=== PATIENT | female | born 1955 | race Caucasian/White ===

== ENCOUNTER 2018-01-08 09:33 | Observation (INO) | payer BC, SELFPAY ==
[2018-01-08] VITALS (15 sets, daily range): BP systolic 75–136; BP diastolic 53–99; PULSE 35–100; RESP 10–18; TEMP 36.4–37.7; O2SAT 95–100; BMI 28.2; BMI 29.5
--- NOTE | 2018-01-08 10:11 | CT_ITS ---
STUDY: CT BRAIN WITHOUT CONTRAST REASON FOR EXAM: Female, 62 years old. 4 day history of weakness and syncope. RADIATION DOSAGE (If Supplied By Facility): CTDIvol = ( 60.81 ) mGy, DLP = ( 2134.16 ) mGycm TECHNIQUE: Transaxial CT imaging of the brain was performed without administration of intravenous contrast material. Individualized dose optimization techniques were used for this CT. COMPARISON: None. FINDINGS: Normal soft tissue structures. There is a 6 mm exostosis along the left frontal bone. Normal size ventricles and extra-axial spaces for the patient's age. Normal white matter tracts of the cerebral hemispheres. Normal basal ganglia and thalami. Normal brainstem. Normal cerebellum. There is no intracranial hemorrhage. There are no findings of an acute ischemic infarction. Mild degree of mucosal thickening of the ethmoid sinuses bilaterally. CT/Brain/Head without Contrast IMPRESSION: Mild degree of mucosal thickening of the ethmoid sinuses. Electronically Signed: Georges Jules MD at 11:26 EST Tel [phone], Service support ,
--- NOTE | 2018-01-08 10:11 | EKG12_ITS ---
Test Reason : SYNCOPE Blood Pressure : / mmHG Vent. Rate : 064 BPM Atrial Rate : 064 BPM P-R Int : 166 ms QRS Dur : 086 ms QT Int : 428 ms P-R-T Axes : 016 002 013 degrees QTc Int : 441 ms Normal sinus rhythm Normal ECG Confirmed by ELVER LEAL, HONG ([id number]), dictionary editor SADE RIOS ([id number]) on 01/11/2018 3:35:11 PM Referred By: KANDY Confirmed By:HONG RAYA MD
--- NOTE | 2018-01-08 10:28 | ED.RN ---
PT HAD SYNCOPAL EPISODE AFTER IV. HEART RATE DOWN TO 35. PT DID STATE THAT SHE FELT LIKE SHE WAS GOING TO PASS OUT. PT UNRESPONSIVE. DR. GAITAN TO BEDSIDE. PT IN JUNCTIONAL RHYTHM. 0.5MG OF ATROPINE VERBAL ORDER FROM DR. GAITAN, GIVEN. BP 75/53, RESP 8, HR 35, 2l 02 PLACED, 100%. PT RESPONSIVE DURING ATROPINE PUSH. HEART RATE BACK UP TO 69 WITH NSR.
--- NOTE | 2018-01-08 10:44 | EKG12_ITS ---
Test Reason : FAREED Blood Pressure : / mmHG Vent. Rate : 040 BPM Atrial Rate : 040 BPM P-R Int : 192 ms QRS Dur : 084 ms QT Int : 518 ms P-R-T Axes : 026 016 044 degrees QTc Int : 422 ms Marked sinus bradycardia Abnormal ECG Confirmed by ELVER LEAL, HONG ([id number]), clinical editor SADE RIOS ([id number]) on 01/11/2018 3:35:26 PM Referred By: KANDY Confirmed By:HONG RAYA MD
[2018-01-08] MEDS: 0.9% Normal Saline 1,000 ML 1000 ML IV (10:45)
[2018-01-08 10:47] LABS: Absolute Lymphocyte Count 0.76 X10^3/ul (0.83-4.51); Absolute Neutrophil Count 2.7 X10^3/uL (2.0-7.7); Basophil# 0.03 X10^3/uL; Basophil% 0.7 % (0-1); Eosinophil# 0.03 X10^3/uL; Eosinophils% 0.7 % (0-5); Hematocrit 42.6 % (37-47); Hemoglobin 13.9 g/dl (12.0-15.0); Lymphocyte # 0.76 X10^3/ul (4.0); Mean Corp Hgb Conc 32.6 g/gl (32-36); Mean Corpuscular Hgb 26.2 pg (27.0-32.0); Mean Corpuscular Volume 80.2 fL (81-99); Mean Platelet Vol. 10.6 fl (6.2-12.0); Monocyte# 0.46 X10^3/uL; Monocyte% 11.5 % (0-10); Neutrophil # 2.73 X10^3/uL (2.7-7.7); Neutrophil % 68.1 % (47-70); Platelet Count 253 K/mm3 (150-450); RBC Distribution Width CV 13.8 % (11.6-14.6); RBC Distribution Width SD 40.1 fl (35.1-43.9); Red Blood Count 5.31 M/mm3 (4.2-5.4)
[2018-01-08 10:49] LABS: POSITIVE COUNT NO; POSITIVE DIFFERENTIAL NO; POSITIVE MORPHOLOGY NO
[2018-01-08 11:04] LABS: Phosphorus 4.2 mg/dL (2.5-4.9)
--- NOTE | 2018-01-08 11:05 | RAD_ITS ---
STUDY: X-RAY CHEST REASON FOR EXAM: Female, 62 years old. Dizziness and weakness. Syncopal episode. TECHNIQUE: AP and lateral views of the chest. COMPARISON: None. FINDINGS: EKG electrodes are seen. The lungs are clear and expanded. There is no demonstrated pleural abnormality. Normal size heart. Normal mediastinum and narinder. Normal visualized pulmonary arteries. There is atherosclerotic tortuosity of the aortic arch and descending thoracic aorta. There are degenerative changes of the visualized thoracic spine. Normal visualized ribs, clavicles, and shoulders. There is no demonstrated abnormality of the visualized soft tissue structures of the upper abdomen. RAD/Chest PA and Lateral IMPRESSION: No acute abnormality is seen. Electronically Signed: Georges Jules MD at 11:27 EST Tel [phone], Service support ,
[2018-01-08 11:08] LABS: Lactic Acid 0.9 mmol/L (0.4-2.0)
[2018-01-08 11:09] LABS: ALB/GLOB Ratio 0.9 RATIO (0.9-2.4); AST(SGOT) 25 U/L (15-37); Alanine Aminotransfer ALT/SGPT 39 U/L (13-56); Albumin, Serum 3.7 g/dL (3.2-5.0); Alkaline Phosphatase 100 U/L (45-117); Anion Gap 9 (5-15); BUN 15 mg/dL (7-18); Calcium,Total 8.1 mg/dL (8.5-10.1); Chloride 99 mmol/L (98-107); Creatinine, Serum 1.15 mg/dL (0.55-1.02); EST Glomerular Filtration Rate 51 mL/min (>60); Est Glom Filt Rate - Afr Amer 62 mL/min (>60); Estimated Creatinine Clearance 44.92 ml/min; Globulin 4.2 g/dL (2.2-4.2); Glucose 93 mg/dL (74-106); Potassium 3.1 mmol/L (3.5-5.1); Protein, Total 7.9 g/dL (6.4-8.2); Sodium Level 136 mmol/L (136-145); Thyroid Stim Hormone (TSH) 0.57 uIU/mL (0.358-3.74)
[2018-01-08 11:56] LABS: Mucous, Urine 0 SEEN /hpf (<or=2+); Red Blood Cells-Urine 0 SEEN /hpf (0-5)
[2018-01-08 11:57] LABS: Color, Urine Yellow (Yellow); Glucose, Dipstick Normal (Normal); Ketone-Dipstick Negative (Negative); Leukocyte Esterase-Dipstick 500 /ul (Negative); Nitrite-Dipstick Negative (Negative); Occult Blood-Urine 10 /ul (Negative); Protein-Dipstick 15 mg/dl (Negative); Urine Bilirubin Dipstick Negative (Negative); Urine Clarity Sl. Cloudy (Clear); Urine Urobilinogen Normal (Normal)
[2018-01-08 12:03] LABS: Bacteria 1+ /hpf (None Seen); Hyaline Cast 0-5 SEEN /lpf (0-5); Squamous Epithelial Cells - UA 5-10 SEEN /hpf (5-10); White Blood Cells 5-10 SEEN /hpf (0-5)
[2018-01-08] MEDS: Morphine 4 MG/ML Syringe IV (12:56)
[2018-01-08] MEDS: Atropine Sulfate 1 MG/10 ML Syringe 0.5 MG IV (13:00)
--- NOTE | 2018-01-08 13:45 | PCM.HP.STD ---
Problem List (1) Syncope Status: Acute History of Present Illness Date of Admission: 01/08/18 Chief Complaint: syncope The patient is a 62 year old F with a history of hypothyroidism and hypertension. She was admitted through the ED on 01/08/2018 with a complaint of syncopal episode. Patient states for the past few days she has been feeling very tired and had associated chills. The early hours of this morning, she was on her way to the bathroom when she passed out and hit the floor. She denies aware that she hit her head or not and states that just prior to passing out she had associated dizziness and lightheadedness. She passed out for ~ 1 minute. She came alone and denied any associated lethargy but states that as her partner was trying to help her get up, she passed out again. Partner states that she had associated jerking movements of her head and her arms but not her legs. Again this lasted about 1 minute and was associated with urinary incontinence but no fecal incontinence and she did not have any drowsiness or lethargy afterwards. She called her doctor's office but they advised her to come to the ED considering the seriousness of the situation. In the ED, vitals were essentially stable with heart rate of 68 and blood pressure 109 73 as well as respiratory rate of 12. However during review in the ED by the ED doctor, her pulse went down and she was noted to be bradycardic and EKG done at that time showed heart rate of 40 which resolved with administration of atropine. Labs done showed potassium of 3.1 and creatinine of 1.15 and chest x-ray showed no acute cardiopulmonary process. Brain CT was also otherwise negative. Is been admitted to be managed for syncopal episode. [] Past Medical History Allergies No Known Allergies Allergy (Verified 01/08/18 09:34) Home Medications: Ambulatory Orders Medication Instructions Recorded Calcitriol [Rocaltrol] 0.25 mg PO DAILY 01/08/18 Levothyroxine [Synthroid] 50 mcg PO DAILY 01/08/18 Lisinopril [Zestril] 5 mg PO DAILY 01/08/18 Triamterene 37.5MG/Hctz 25MG 1 cap PO DAILY 01/08/18 [Dyazide (G)] Surgical History: - - parathyroidectomy Psychiatric History: No pertinent psych hx Lives: Spouse/ Significant Other Smoking Status: Never smoker Alcohol: Occasional Drugs: None - *Family History Sibling History Items: Seizures - brother developed seizures after encephalitis Paternal History Items: Heart Disease Maternal History Items: Stroke Review of Systems Constitutional: Reports: Malaise, Weakness, Fatigue. Denies: Chills, Fever, Weight Change Eyes: Denies: Blurred vision, Double vision HEENT: Denies: Head Aches, Sinus Congestion, Sinus Drainage Cardiovascular: Denies: Chest Pain, Palpitations Respiratory: Denies: Cough, Shortness of Breath, Shortness of breath at rest, Sputum production Gastrointestinal: Denies: Abdominal Pain, Nausea, Vomiting Genitourinary: Denies: Dysuria Musculoskeletal: Denies: Joint Pain, Joint Tenderness Skin: Denies: Rash, Wounds Neurological: Denies: Slurred speech, Confusion, Focal weakness, Numbness, Tingling Psychiatric: Denies: Anxiety, Depression, Homicidal Ideations, Suicidal Ideations Hematologic/ Lymphatic: Denies: Easy Bruising, Easy Bleeding VTE Information - Inpt Only VTE Present on Admission: No VTE Pharm Prophylaxis ordered?: Yes Patient Problems: Active and Suspected Problems Syncope (Acute) - Physical Exam General: Alert, Oriented x3, Cooperative, No apparent distress HEENT: Atraumatic, PERRLA, EOMI, Normocephalic Oral: Dry Mucosa Neck: Supple, No JVD, Negative Carotid Bruits Lungs: Clear to auscultation, Normal air movement, No rhonchi, No wheeze, No rales Cardiovascular: Regular rate, Regular Rhythm, Normal S1, Normal S2, No murmurs Abdomen: Bowel Sounds Present, Soft, Non Tender, Non-Distended, No Hepato-splenomegaly Extremities: No clubbing, No cyanosis, No edema, Capillary Refill Less than 3 Seconds Skin: No rashes, No breakdown Musculoskeletal: No Tenderness to Palpation of Joints or Extremities Lymphatic: No Cervical, Supraclavicular, or Inguinal Adenopathy Neurological: Cranial nerves II-XII grossly intact, Neuro grossly intact, Motor Exam 5/5 strength throughout Psych/Mental Status: Normal Affect, Appropriate, Alert and oriented to time, place, person, mood and affect Vital Signs Temp Pulse Resp BP Pulse Ox 97.6 F L 68 17 109/77 98 01/08/18 09:35 01/08/18 13:22 01/08/18 13:22 01/08/18 13:22 01/08/18 13:22 Oxygen Flow Rate (L/min) 2 Oxygen Delivery Method Room Air Weight: 164 lb 7.437 oz Body Mass Index (BMI) 28.2 Laboratory Tests Past 24 Hrs 01/08/18 01/08/18 01/08/18 10:26 10:26 10:26 WBC 4.0 L RBC 5.31 Hgb 13.9 Hct 42.6 MCV 80.2 L MCH 26.2 L MCHC 32.6 RDW 13.8 RDW Differential 40.1 Plt Count 253 MPV 10.6 Immature Gran % (Auto) 0.000 Neut % (Auto) 68.1 Lymph % (Auto) 19.0 [place] % (Auto) 11.5 H Eos % (Auto) 0.7 Baso % (Auto) 0.7 Absolute Neuts (auto) 2.7 Absolute Lymphs (auto) 0.76 L Total Counted Not Reportable Sodium 136 Potassium 3.1 L Chloride 99 Carbon Dioxide 28.0 Anion Gap 9 BUN 15 Creatinine 1.15 H Estim Creat Clear Calc 44.92 Est GFR (MDRD) Af Amer 62 Est GFR (MDRD) Non-Af 51 L BUN/Creatinine Ratio 13.0 Glucose 93 Lactic Acid 0.9 Calcium 8.1 L Phosphorus Magnesium 2.0 Total Bilirubin 1.10 H AST 25 ALT 39 Alkaline Phosphatase 100 Troponin I < 0.015 Total Protein 7.9 Albumin 3.7 Globulin 4.2 Albumin/Globulin Ratio 0.9 TSH 0.57 Urine Color Urine Clarity Urine pH Ur Specific [place] Urine Protein Urine Glucose (UA) Urine Ketones Urine Occult Blood Urine Nitrite Urine Bilirubin Urine Urobilinogen Ur Leukocyte Esterase Urine RBC Urine WBC Ur Squamous Epith Cells Urine Bacteria Hyaline Casts Urine Mucus 01/08/18 01/08/18 10:26 11:50 WBC RBC Hgb Hct MCV MCH MCHC RDW RDW Differential Plt Count MPV Immature Gran % (Auto) Neut % (Auto) Lymph % (Auto) [place] % (Auto) Eos % (Auto) Baso % (Auto) Absolute Neuts (auto) Absolute Lymphs (auto) Total Counted Sodium Potassium Chloride Carbon Dioxide Anion Gap BUN Creatinine Estim Creat Clear Calc Est GFR (MDRD) Af Amer Est GFR (MDRD) Non-Af BUN/Creatinine Ratio Glucose Lactic Acid Calcium Phosphorus 4.2 Magnesium Total Bilirubin AST ALT Alkaline Phosphatase Troponin I Total Protein Albumin Globulin Albumin/Globulin Ratio TSH Urine Color Yellow Urine Clarity Sl. Cloudy Urine pH 6.0 Ur Specific [place] 1.020 Urine Protein 15 H Urine Glucose (UA) Normal Urine Ketones Negative Urine Occult Blood 10 H Urine Nitrite Negative Urine Bilirubin Negative Urine Urobilinogen Normal Ur Leukocyte Esterase 500 H Urine RBC 0 SEEN Urine WBC 5-10 SEEN Ur Squamous Epith Cells 5-10 SEEN Urine Bacteria 1+ Hyaline Casts 0-5 SEEN Urine Mucus 0 SEEN Assessment/Plan All Active Problems Syncope (Acute) 62-year-old female presenting with 2 episodes of syncope and possible seizure. 1. Syncope due to possible seizure and bradycardia first time having syncopal episodes, and denies any history of seizures EKG on arrival in ED showed NSR, however she suddenly became bradycardic and EKG showed heart rate in the 40s. And possible seizure with syncope as she has jerking movements of her head and her arms. admit to PCU with telemetry check orthostatics brain CT showed no acute intracranial pathology Consult neurology for possible seizure. For brain MRI and EEG Consult cardiology on account of bradycardia with heart rate going down to the 40s. hydrate With IV fluid normal saline 2. Hypokalemia: K is 3.1 It has been replaced. WIll monitor 3. Hypothyroidism: History of Sandy's thyroiditis. Also had parathyroidectomy, and had half her thyroid gland resected o/a of Sandy's thyroiditis. She is not clear about indication for parathyroidectomy. On Synthroid. Will check TSH. 4. Hypocalcemia: calcium is 8.1, corrected for albumin. has a history of parathyroidectomy, which will predispose her to hypocalcemia will replace and monitor on oral calciuim supplements 5. Hypertension: on lisinopril and triamterene. 6. Asymptomatic bacteriuria: UA showed LEs of 500, 4-10 wbc3 and 1+ bacteria. Patient is however asymptomatic. Will monitor. DVT prophylaxis: heparin Code status: full code. Patient Counseled about different types of CODE STATUS including full code, DNR CCA DNR CCA. Patient elects to be full code. Total [id number] time 16 minutes. Code Visit Inpatient E&M: 83841 Init Hosp L3 Procedures: 82367 Advncd Care Plan 30 Min
--- NOTE | 2018-01-08 13:49 | HP.PCM_ITS ---
Problem List (1) Syncope Status: Acute History of Present Illness Date of Admission: 01/08/18 Chief Complaint: syncope The patient is a 62 year old F with a history of hypothyroidism and hypertension. She was admitted through the ED on 01/08/2018 with a complaint of syncopal episode. Patient states for the past few days she has been feeling very tired and had associated chills. The early hours of this morning, she was on her way to the bathroom when she passed out and hit the floor. She denies aware that she hit her head or not and states that just prior to passing out she had associated dizziness and lightheadedness. She passed out for ~ 1 minute. She came alone and denied any associated lethargy but states that as her partner was trying to help her get up, she passed out again. Partner states that she had associated jerking movements of her head and her arms but not her legs. Again this lasted about 1 minute and was associated with urinary incontinence but no fecal incontinence and she did not have any drowsiness or lethargy afte rwards. She called her doctor's office but they advised her to come to the ED considering the seriousness of the situation. In the ED, vitals were essentially stable with heart rate of 68 and blood pressure 109 73 as well as respiratory rate of 12. However during review in the ED by the ED doctor, her pulse went down and she was noted to be bradycardic and EKG done at that time showed heart rate of 40 which resolved with administration of atropine. Labs done showed potassium of 3.1 and creatinine of 1.15 and chest x-ray showed no acute cardiopulmonary process. Brain CT was also otherwise negative. Is been admitted to be managed for syncopal episode. [] Past Medical History Allergies No Known Allergies Allergy (Verified 01/08/18 09:34) Home Medications: Ambulatory Orders Medication Instructions Recorded Calcitriol [Rocaltrol] 0.25 mg PO DAILY 01/08/18 Levothyroxine [Synthroid] 50 mcg PO DAILY 01/08/18 Lisinopril [Zestril] 5 mg PO DAILY 01/08/18 Triamterene 37.5MG/Hctz 25MG 1 cap PO DAILY 01/08/18 [Dyazide (G)] Surgical History: - - parathyroidectomy Psychiatric History: No pertinent psych hx Lives: Spouse/ Significant Other Smoking Status: Never smoker Alcohol: Occasional Drugs: None - *Family History Sibling History Items: Seizures - brother developed seizures after encephalitis Paternal History Items: Heart Disease Maternal History Items: Stroke Review of Systems Constitutional: Reports: Malaise, Weakness, Fatigue. Denies: Chills, Fever, Weight Change Eyes: Denies: Blurred vision, Double vision HEENT: Denies: Head Aches, Sinus Congestion, Sinus Drainage Cardiovascular: Denies: Chest Pain, Palpitations Respiratory: Denies: Cough, Shortness of Breath, Shortness of breath at rest, Sputum production Gastrointestinal: Denies: Abdominal Pain, Nausea, Vomiting Genitourinary: Denies: Dysuria Musculoskeletal: Denies: Joint Pain, Joint Tenderness Skin: Denies: Rash, Wounds Neurological: Denies: Slurred speech, Confusion, Focal weakness, Numbness, Tingling Psychiatric: Denies: Anxiety, Depression, Homicidal Ideations, Suicidal Ideations Hematologic/ Lymphatic: Denies: Easy Bruising, Easy Bleeding VTE Information - Inpt Only VTE Present on Admission: No VTE Pharm Prophylaxis ordered?: Yes Patient Problems: Active and Suspected Problems Syncope (Acute) - Physical Exam General: Alert, Oriented x3, Cooperative, No apparent distress HEENT: Atraumatic, PERRLA, EOMI, Normocephalic Oral: Dry Mucosa Neck: Supple, No JVD, Negative Carotid Bruits Lungs: Clear to auscultation, Normal air movement, No rhonchi, No wheeze, No rales Cardiovascular: Regular rate, Regular Rhythm, Normal S1, Normal S2, No murmurs Abdomen: Bowel Sounds Present, Soft, Non Tender, Non-Distended, No Hepato- splenomegaly Extremities: No clubbing, No cyanosis, No edema, Capillary Refill Less than 3 Seconds Skin: No rashes, No breakdown Musculoskeletal: No Tenderness to Palpation of Joints or Extremities Lymphatic: No Cervical, Supraclavicular, or Inguinal Adenopathy Neurological: Cranial nerves II-XII grossly intact, Neuro grossly intact, Motor Exam 5/5 strength throughout Psych/Mental Status: Normal Affect, Appropriate, Alert and oriented to time, place, person, mood and affect Vital Signs Temp Pulse Resp BP Pulse Ox 97.6 F L 68 17 109/77 98 01/08/18 09:35 01/08/18 13:22 01/08/18 13:22 01/08/18 13:22 01/08/18 13:22 Oxygen Flow Rate (L/min) 2 Oxygen Delivery Method Room Air Weight: 164 lb 7.437 oz Body Mass Index (BMI) 28.2 Laboratory Tests Past 24 Hrs 01/08/18 01/08/18 01/08/18 10:26 10:26 10:26 WBC 4.0 L RBC 5.31 Hgb 13.9 Hct 42.6 MCV 80.2 L MCH 26.2 L MCHC 32.6 RDW 13.8 RDW Differential 40.1 Plt Count 253 MPV 10.6 Immature Gran % (Auto) 0.000 Neut % (Auto) 68.1 Lymph % (Auto) 19.0 [place] % (Auto) 11.5 H Eos % (Auto) 0.7 Baso % (Auto) 0.7 Absolute Neuts (auto) 2.7 Absolute Lymphs (auto) 0.76 L Total Counted Not Reportable Sodium 136 Potassium 3.1 L Chloride 99 Carbon Dioxide 28.0 Anion Gap 9 BUN 15 Creatinine 1.15 H Estim Creat Clear Calc 44.92 Est GFR (MDRD) Af Amer 62 Est GFR (MDRD) Non-Af 51 L BUN/Creatinine Ratio 13.0 Glucose 93 Lactic Acid 0.9 Calcium 8.1 L Phosphorus Magnesium 2.0 Total Bilirubin 1.10 H AST 25 ALT 39 Alkaline Phosphatase 100 Troponin I < 0.015 Total Protein 7.9 Albumin 3.7 Globulin 4.2 Albumin/Globulin Ratio 0.9 TSH 0.57 Urine Color Urine Clarity Urine pH Ur Specific [place] Urine Protein Urine Glucose (UA) Urine Ketones Urine Occult Blood Urine Nitrite Urine Bilirubin Urine Urobilinogen Ur Leukocyte Esterase Urine RBC Urine WBC Ur Squamous Epith Cells Urine Bacteria Hyaline Casts Urine Mucus 01/08/18 01/08/18 10:26 11:50 WBC RBC Hgb Hct MCV MCH MCHC RDW RDW Differential Plt Count MPV Immature Gran % (Auto) Neut % (Auto) Lymph % (Auto) [place] % (Auto) Eos % (Auto) Baso % (Auto) Absolute Neuts (auto) Absolute Lymphs (auto) Total Counted Sodium Potassium Chloride Carbon Dioxide Anion Gap BUN Creatinine Estim Creat Clear Calc Est GFR (MDRD) Af Amer Est GFR (MDRD) Non-Af BUN/Creatinine Ratio Glucose Lactic Acid Calcium Phosphorus 4.2 Magnesium Total Bilirubin AST ALT Alkaline Phosphatase Troponin I Total Protein Albumin Globulin Albumin/Globulin Ratio TSH Urine Color Yellow Urine Clarity Sl. Cloudy Urine pH 6.0 Ur Specific [place] 1.020 Urine Protein 15 H Urine Glucose (UA) Normal Urine Ketones Negative Urine Occult Blood 10 H Urine Nitrite Negative Urine Bilirubin Negative Urine Urobilinogen Normal Ur Leukocyte Esterase 500 H Urine RBC 0 SEEN Urine WBC 5-10 SEEN Ur Squamous Epith Cells 5-10 SEEN Urine Bacteria 1+ Hyaline Casts 0-5 SEEN Urine Mucus 0 SEEN Assessment/Plan All Active Problems Syncope (Acute) 62-year-old female presenting with 2 episodes of syncope and possible seizure. 1. Syncope due to possible seizure and bradycardia * first time having syncopal episodes, and denies any history of seizures * EKG on arrival in ED showed NSR, however she suddenly became bradycardic and EKG showed heart rate in the 40s. * And possible seizure with syncope as she has jerking movements of her head and her arms. * admit to PCU with telemetry * check orthostatics * brain CT showed no acute intracranial pathology * Consult neurology for possible seizure. * For brain MRI and EEG * Consult cardiology on account of bradycardia with heart rate going down to the 40s. * hydrate With IV fluid normal saline * 2. Hypokalemia: K is 3.1 It has been replaced. WIll monitor 3. Hypothyroidism: * History of Sandy's thyroiditis. * Also had parathyroidectomy, and had half her thyroid gland resected o/a of Sandy's thyroiditis. * She is not clear about indication for parathyroidectomy. * On Synthroid. Will check TSH. * 4. Hypocalcemia: * calcium is 8.1, corrected for albumin. * has a history of parathyroidectomy, which will predispose her to hypocalcemia * will replace and monitor * on oral calciuim supplements * 5. Hypertension: on lisinopril and triamterene. 6. Asymptomatic bacteriuria: UA showed LEs of 500, 4-10 wbc3 and 1+ bacteria. Patient is however asymptomatic. Will monitor. DVT prophylaxis: heparin Code status: full code. * Patient Counseled about different types of CODE STATUS including full code, DNR CCA DNR CCA. Patient elects to be full code. Total [id number] time 16 minutes. Code Visit Inpatient E&M: 78281 Init Hosp L3 Procedures: 83469 Advncd Care Plan 30 Min
[2018-01-08] MEDS: 0.9% Normal Saline 1,000 ML 125 ML IV (15:43)
--- NOTE | 2018-01-08 17:05 | ED.VISSUMM ---
- ER Visit Summary Date of Service: 01/08/18 Chief Complaint: Syncope History of Present Illness: The patient is a [address] Pierce. She reports that approximately 230 this morning she had a syncopal episode. She reports that she been laying down for hours. She got up to go to the bathroom as she felt nauseated and thought she was going to vomit. She stood up and took a few steps. She reports that she was lightheaded and diaphoretic and had a syncopal episode. She denies any associated chest pain, palpitations, shortness of breath, or abdominal pain. Her significant other heard her hit the floor and went to help her. He reports that she was unresponsive for approximately 1 minute. He lifted her feet up and put a cool washcloth on her head. She came around and was not postictal. Approximately 1-1/2 minutes later after not standing she had a second unresponsive episode lasted approximately 1 minute. During this her lips were trembling and she had the cord or posturing. There is no tonic-clonic activity. She was incontinent of urine. However, she did not bite her tongue. She not have a postictal episode. She laid on the floor for approximately 5 minutes then was helped to the restroom and is felt back to her baseline since then. Patient reports that she had 3-1/2 of the parathyroids removed at the end of October and half of her thyroid gland removed since then is been fatigued ever since this time. On review of systems patient planes of shaking chills for the past 3 days. She denies any fever. No chest pain, cough, shortness of breath. She denies any abdominal pain, vomiting, diarrhea, melena or hematochezia. Her last bowel was today. She had no dysuria frequency. No rash. She does complain of a headache for the past 3 days. She reports is 4 out of 10 at worst and 3-10 currently. Is associated with photophobia. She denies any visual changes. She has had nausea without vomiting. Physical Examination: Vitals: Stable. Afebrile. General: Well-nourished and well-developed. Head: Normocephalic atraumatic. Neck: Supple, no lymphadenopathy. No JVD. Nontender. Cardiovascular: Regular rate and rhythm. 2 out of 6 systolic murmur. Respiratory: No respiratory distress. Clear to auscultation bilaterally. Abdominal: Soft, nontender, nondistended, normal bowel sounds. No guarding, rebound, or peritoneal signs. Back: Nontender. Extremities: Nontender, no edema. Skin: Normal color, no rash. Neurologic: Alert and oriented ?3. Cranial nerves II through XII are intact. Normal strength and sensation. Psych: Normal affect. Test Results: EKG is sinus at [address] changes. Patient had episode of bradycardia repeat EKG shows sinus bradycardia at [address] changes. Troponin is negative. UA shows 5-10 white blood cells, 5-10 epithelial cells, 1+ bacteria. LFTs marked total bili 1.1. Chem-7 marked potassium 3.1, calcium 8.1, and creatinine 1.15. CBC is more for white count 4.0 and monocytes of 12. TSH is 0.57. Lactic acid is 0.9. Phosphorus is 4.2. Magnesium is 2.0. Clinical Impression(s) from Imaging Studies Brain CT 01/08/18 10:11 IMPRESSION: Mild degree of mucosal thickening of the ethmoid sinuses. Electronically Signed: Georges Jules MD at 11:26 EST Tel [phone], Service support , Chest X-Ray 01/08/18 11:05 IMPRESSION: No acute abnormality is seen. Electronically Signed: Georges Jules MD at 11:27 EST Tel [phone], Service support , Emergency Department Course and Treatment: Just after having her IV started patient had a vagal episode where her heart rate dropped into the high 30s and low 40s. She was hypotensive and unresponsive with this. It responded well to atropine. However, the episode at home does not sound to be simply vagal in origin. Treatment Plan: The patient was discussed with Dr. Khanna and Dr. Otto. She will be admitted for further evaluation and treatment. Disposition: Admitted in improved condition. Impression: 1. Syncope. 2. Vasovagal episode. 3. Rigors. 4. Cephalgia. This note was generated with [employer] software. It may contain incorrect words, spelling, and punctuation that were not noted in review of the chart prior to signing ED Disposition - Plan for ED Patient: Disposition: Acute Care Hospital [facility] Chief Complaint: Syncope
--- NOTE | 2018-01-08 17:09 | ED.DCSUM_ITS ---
- ER Visit Summary Date of Service: 01/08/18 Chief Complaint: Syncope History of Present Illness: The patient is a [address] Pierce. She reports that approximately 230 this morning she had a syncopal episode. She reports that she been laying down for hours. She got up to go to the bathroom as she felt nauseated and thought she was going to vomit. She stood up and took a few steps. She reports that she was lightheaded and diaphoretic and had a syncopal episode. She denies any associated chest pain, palpitations, shortness of breath, or abdominal pain. Her significant other heard her hit the floor and went to help her. He reports that she was unresponsive for approximately 1 minute. He lifted her feet up and put a cool washcloth on her head. She came around and was not postictal. Approximately 1-1/2 minutes later after not standing she had a second unresponsive episode lasted approximately 1 minute. During this her lips were trembling and she had the cord or posturing. There is no tonic-clonic activity. She was incontinent of urine. However, she did not bite her tongue. She not have a postictal episode. She laid on the floor for approximately 5 minutes then was helped to the restroom and is felt back to her baseline since then. Patient reports that she had 3-1/2 of the parathyroids removed at the end of October and half of her thyroid gland removed since then is been fatigued ever since this time. On review of systems patient planes of shaking chills for the past 3 days. She denies any fever. No chest pain, cough, shortness of breath. She denies any abdominal pain, vomiting, diarrhea, melena or hematochezia. Her last bowel was today. She had no dysuria frequency. No rash. She does complain of a headache for the past 3 days. She reports is 4 out of 10 at worst and 3-10 currently. Is associated with photophobia. She denies any visual changes. She has had nausea without vomiting. Physical Examination: Vitals: Stable. Afebrile. General: Well-nourished and well-developed. Head: Normocephalic atraumatic. Neck: Supple, no lymphadenopathy. No JVD. Nontender. Cardiovascular: Regular rate and rhythm. 2 out of 6 systolic murmur. Respiratory: No respiratory distress. Clear to auscultation bilaterally. Abdominal: Soft, nontender, nondistended, normal bowel sounds. No guarding, rebound, or peritoneal signs. Back: Nontender. Extremities: Nontender, no edema. Skin: Normal color, no rash. Neurologic: Alert and oriented ?3. Cranial nerves II through XII are intact. Normal strength and sensation. Psych: Normal affect. Test Results: EKG is sinus at [address] changes. Patient had episode of bradycardia repeat EKG shows sinus bradycardia at [address] changes. Troponin is negative. UA shows 5-10 white blood cells, 5-10 epithelial cells, 1+ bacteria. LFTs marked total bili 1.1. Chem-7 marked potassium 3.1, calcium 8.1, and creatinine 1.15. CBC is more for white count 4.0 and monocytes of 12. TSH is 0.57. Lactic acid is 0.9. Phosphorus is 4.2. Magnesium is 2.0. Clinical Impression(s) from Imaging Studies Brain CT 01/08/18 10:11 IMPRESSION: Mild degree of mucosal thickening of the ethmoid sinuses. Electronically Signed: Georges Jules MD at 11:26 EST Tel [phone], Service support , Chest X-Ray 01/08/18 11:05 IMPRESSION: No acute abnormality is seen. Electronically Signed: Georges Jules MD at 11:27 EST Tel [phone], Service support , Emergency Department Course and Treatment: Just after having her IV started patient had a vagal episode where her heart rate dropped into the high 30s and low 40s. She was hypotensive and unresponsive with this. It responded well to atropine. However, the episode at home does not sound to be simply vagal in origin. Treatment Plan: The patient was discussed with Dr. Khanna and Dr. Otto. She will be admitted for further evaluation and treatment. Disposition: Admitted in improved condition. Impression: 1. Syncope. 2. Vasovagal episode. 3. Rigors. 4. Cephalgia. This note was generated with [employer] software. It may contain incorrect words, spelling, and punctuation that were not noted in review of the chart prior to signing ED Disposition - Plan for ED Patient: Disposition: Acute Care Hospital [facility] Chief Complaint: Syncope
--- NOTE | 2018-01-08 17:17 | ECHOD_ITS ---
Reason For Study: ARRHYTHMIA Procedure This was a 2D Doppler, Color Flow transthoracic echocardiogram. Exam performed portable in patient room. Left Ventricle Normal LV size. Left ventricular systolic function is normal. The estimated ejection fraction is 60 %. No evidence for diastolic dysfunction. No regional wall motion abnormalities noted. Right Ventricle Normal RV size. Normal systolic function. Atria Normal left atrium. Normal right atrium. Mitral Valve Normal mitral valve. Mild (1+) eccentric mitral valve insufficiency. Tricuspid Valve Normal tricuspid valve. Mild (1+) tricuspid valve insufficiency. Pulmonary artery systolic pressure is 30 mmHg. Aortic Valve Normal aortic valve. Trisinus/trileaflet aortic valve. Pulmonic Valve Normal pulmonic valve. Great Vessels Normal aortic root. The pulmonary artery is normal size. Normal inferior vena cava. Pericardium/Pleural No pericardial effusion. MMode/2D Measurements & Calculations LVIDd: 4.1 cm IVSd: 1.1 cm Ao root diam: 3.5 cm LVIDs: 2.9 cm LVPWd: 1.0 cm RVDd: 2.9 cm FS: 30.0 % LAV(MOD-bp): 54.4 ml EDV(MOD-sp4): 109.3 ml SV(MOD-sp4): 61.3 ml LAV(MOD-bp) Indexed: 29.7 ml/m2 ESV(MOD-sp4): 48.0 ml LAV(MOD-sp2): 66.6 ml EF(MOD-sp4): 56.1 % LAV(MOD-sp4): 38.9 ml LA A4 area: 14.8 cm2 LA dimension(2D): 3.5 cm RA A4 area: 11.0 cm2 Time Measurements MV dec time: 0.19 sec Doppler Measurements & Calculations MV E max delbert: 85.4 cm/sec Lat Peak E' Delbert: 11.5 cm/sec Med Peak E' Delbert: 7.0 cm/sec MV A max delbert: 73.3 cm/sec E/E' lat: 7.4 E/E' med: 12.1 MV E/A: 1.2 Ao V2 max: 117.7 cm/sec AI max delbert: 412.4 cm/sec LV V1 max: 109.8 cm/sec Ao max P.5 mmHg AI max P.0 mmHg LV V1 max P.8 mmHg AI dec slope: 260.9 cm/sec2 AI P1/2t: 463.0 msec PA V2 max: 88.6 cm/sec PI end-d delbert: 111.5 cm/sec TR max delbert: 252.7 cm/sec TR max P.6 mmHg Interpretation Summary Normal LV size. Left ventricular systolic function is normal. The estimated ejection fraction is 60 %. No evidence for diastolic dysfunction. Mild (1+) eccentric mitral valve insufficiency. Mild (1+) tricuspid valve insufficiency. Pulmonary artery systolic pressure is 30 mmHg. Ordering Physician: Vinay Khanna Performed By: Sruthi Richards RDCS, RVT
--- NOTE | 2018-01-08 17:19 | PCM.CONS.C ---
Reason for Consult Date of Consultation: 01/08/18 Reason for Consultation: Syncope History of Present Illness: The patient is a 62 year old F with a history of hypothyroidism, hyperparathyroidism and hypertension. She was admitted through the ED on 01/08/2018 with a complaint of syncopal episode. Patient states for the past few days she has been feeling very tired and had associated chills. The early hours of this morning, she was on her way to the bathroom when she passed out and hit the floor. She thinks that she could feel herself going to pass out. She states that as her partner was trying to help her get up, she passed out again. Partner states that she had associated jerking movements of her head and her arms but not her legs. Again this lasted about 1 minute and was associated with urinary incontinence but no fecal incontinence and she did not have any drowsiness or lethargy afterwards. She called her doctor's office but they advised her to come to the ED considering the seriousness of the situation. In the ED, vitals were essentially stable with heart rate of 68 and blood pressure 109/ 73 as well as respiratory rate of 12. She has previously had a history of near syncope during blood draws and as she was in the ER shortly after they placed the IV she was noted to be bradycardic and they called in the ER physician who gave her atropine. Her laboratory tests were significant for a potassium of 3.1. Her electrocardiogram however demonstrated only sinus bradycardia with a rate of approximately [address] They pursued a [address] scan of the head which was unremarkable. From the cardiac standpoint she appears to be fine at this time other than feeling cold. Past Medical History Allergies/Adverse Reactions: Allergies No Known Allergies Allergy (Verified 01/08/18 09:34) Home Medications: Ambulatory Orders Medication Instructions Recorded Calcitriol [Rocaltrol] 0.25 mg PO DAILY 01/08/18 Levothyroxine [Synthroid] 50 mcg PO DAILY 01/08/18 Lisinopril [Zestril] 5 mg PO DAILY 01/08/18 Triamterene 37.5MG/Hctz 25MG 1 cap PO DAILY 01/08/18 [Dyazide (G)] Surgical History: - - parathyroidectomy Psychiatric History: No pertinent psych hx - *Family History Sibling History Items: Seizures - brother developed seizures after encephalitis Paternal History Items: Heart Disease Maternal History Items: Stroke Lives: Spouse/ Significant Other Smoking Status: Never smoker Tobacco Use: Non-smoker Alcohol: Occasional Drugs: None Review of Systems - Review of Systems General: Reports: Fever, Fatigue, Malaise, Chills, Weakness. Denies: Night Sweats HEENT: Denies: Vision Change Cardiovascular: Reports: Dizziness, Syncope. Denies: Chest Discomfort, Shortness of Breath, Orthopnea, PND, Peripheral Edema, Palpitations, Lightheadedness, Near Syncope Respiratory: Denies: Cough, Sputum Production, Hemoptysis Gastrointestinal: Denies: Indigestion, Hematemesis, Hematochezia, Melena Genitourinary: Denies: Dysuria, Hematuria Muscoloskeletal: Denies: Myalgias Skin: Denies: Rash Neurological: Reports: Dizziness Psychiatric: Denies: Anxiety Endocrine: Reports: Cold Intolerance Hematologic/ Lymphatic: Denies: Anemia Subjectve: Pleasant lady in no apparent distress Objective: Vital Signs Temp Pulse Resp BP Pulse Ox 98.5 F 64 16 106/55 L 97 01/08/18 14:00 01/08/18 14:00 01/08/18 14:00 01/08/18 14:00 01/08/18 14:00 Oxygen Flow Rate (L/min) 2 Oxygen Delivery Method Room Air Weight: 171 lb 11.841 oz Body Mass Index (BMI) 29.5 General: Awake, Alert, Oriented x 3 HEENT: PERRL, EOMI, Sclera Non Icteric Neck: Supple, Good ROM, No Lymph Node Enlargement Lungs: Clear to auscultation Cardiovascular: Regular Rhythm, Normal S1, Normal S2, No Murmurs, No Rubs, No Gallops Vascular: No Carotid Bruits, Normal Femoral Pulses, Normal Radial Pulses, Normal Dorsalis Pedal Pulse, Normal Posterior Tibial Pulses Abdomen: Bowel Sounds Present, Soft, Non Tender, No HSM, No Organomegaly Extremities: No Cyanosis, No Clubbing, No edema Neurological: No Focal Motor or Sensory Deficit 01/08/18 10:26: WBC 4.0 L, RBC 5.31, Hgb 13.9, Hct 42.6, MCV 80.2 L, MCH 26.2 L, MCHC 32.6, RDW 13.8, RDW Differential 40.1, Plt Count 253, MPV 10.6, Immature Gran % (Auto) 0.000, Neut % (Auto) 68.1, Lymph % (Auto) 19.0, [place] % (Auto) 11.5 H, Eos % (Auto) 0.7, Baso % (Auto) 0.7, Absolute Neuts (auto) 2.7, Total Counted Not Reportable 01/08/18 10:26: Sodium 136, Potassium 3.1 L, Chloride 99, Carbon Dioxide 28.0, Anion Gap 9, BUN 15, Creatinine 1.15 H, Est GFR (MDRD) Af Amer 62, Est GFR (MDRD) Non-Af 51 L, BUN/Creatinine Ratio 13.0, Glucose 93, Calcium 8.1 L, Magnesium 2.0, Total Bilirubin 1.10 H, Troponin I < 0.015 01/08/18 10:26: Lactic Acid 0.9 01/08/18 10:26: Phosphorus 4.2 01/08/18 11:50: Urine Color Yellow, Urine Clarity Sl. Cloudy, Urine pH 6.0, Ur Specific [place] 1.020, Urine Protein 15 H, Urine Glucose (UA) Normal, Urine Ketones Negative, Urine Occult Blood 10 H, Urine Nitrite Negative, Urine Bilirubin Negative, Urine Urobilinogen Normal, Ur Leukocyte Esterase 500 H, Urine RBC 0 SEEN, Urine WBC 5-10 SEEN Rhythm: EKG: Sinus bradycardia with a rate of 40 bpm, subsequently sinus rhythm with a rate of 68 bpm no acute changes noted Assessment/Plan 1. Syncopal episode The initial syncopal episode was likely a vagal response also secondary to relative dehydration from her current status which may be infection related. In the emergency room the event was likely secondary to placement of the IV which was also clearly a vasodepressor syncopal episode. This was associated with bradycardia arrhythmia. My recommendation at this time would be to hold her diuretic and replace electrolytes as appropriate Obtain an echocardiogram to assess her left ventricular function Continue to monitor her blood pressure I really do not think that any further cardiac workup is recommended at this particular time. Her underlying condition for why she is tired needs to be evaluated and may be related to her recent surgery and or an infection which is currently not immediately apparent. Thank you for allowing me to participate in the care of your patient. Please don't hesitate to call if any issues arise
--- NOTE | 2018-01-08 17:24 | CON.PCM_ITS ---
Reason for Consult Date of Consultation: 01/08/18 Reason for Consultation: Syncope History of Present Illness: The patient is a 62 year old F with a history of hypothyroidism, hyperparathyroidism and hypertension. She was admitted through the ED on 01/08/2018 with a complaint of syncopal episode. Patient states for the past few days she has been feeling very tired and had associated chills. The early hours of this morning, she was on her way to the bathroom when she passed out and hit the floor. She thinks that she could feel herself going to pass out. She states that as her partner was trying to help her get up, she passed out again. Partner states that she had associated jerking movements of her head and her arms but not her legs. Again this lasted about 1 minute and was associated with urinary incontinence but no fecal incontinence and she did not have any drowsi ness or lethargy afterwards. She called her doctor's office but they advised her to come to the ED considering the seriousness of the situation. In the ED, vitals were essentially stable with heart rate of 68 and blood pressure 109/ 73 as well as respiratory rate of 12. She has previously had a history of near syncope during blood draws and as she was in the ER shortly after they placed the IV she was noted to be bradycardic and they called in the ER physician who gave her atropine. Her laboratory tests were significant for a potassium of 3.1. Her electrocardiogram however demonstrated only sinus bradycardia with a rate of approximately [address] They pursued a [address] scan of the head which was unremarkable. From the cardiac standpoint she appears to be fine at this time other than feeling cold. Past Medical History Allergies/Adverse Reactions: Allergies No Known Allergies Allergy (Verified 01/08/18 09:34) Home Medications: Ambulatory Orders Medication Instructions Recorded Calcitriol [Rocaltrol] 0.25 mg PO DAILY 01/08/18 Levothyroxine [Synthroid] 50 mcg PO DAILY 01/08/18 Lisinopril [Zestril] 5 mg PO DAILY 01/08/18 Triamterene 37.5MG/Hctz 25MG 1 cap PO DAILY 01/08/18 [Dyazide (G)] Surgical History: - - parathyroidectomy Psychiatric History: No pertinent psych hx - *Family History Sibling History Items: Seizures - brother developed seizures after encephalitis Paternal History Items: Heart Disease Maternal History Items: Stroke Lives: Spouse/ Significant Other Smoking Status: Never smoker Tobacco Use: Non-smoker Alcohol: Occasional Drugs: None Review of Systems - Review of Systems General: Reports: Fever, Fatigue, Malaise, Chills, Weakness. Denies: Night Sweats HEENT: Denies: Vision Change Cardiovascular: Reports: Dizziness, Syncope. Denies: Chest Discomfort, Shortness of Breath, Orthopnea, PND, Peripheral Edema, Palpitations, Lightheadedness, Near Syncope Respiratory: Denies: Cough, Sputum Production, Hemoptysis Gastrointestinal: Denies: Indigestion, Hematemesis, Hematochezia, Melena Genitourinary: Denies: Dysuria, Hematuria Muscoloskeletal: Denies: Myalgias Skin: Denies: Rash Neurological: Reports: Dizziness Psychiatric: Denies: Anxiety Endocrine: Reports: Cold Intolerance Hematologic/ Lymphatic: Denies: Anemia Subjectve: Pleasant lady in no apparent distress Objective: Vital Signs Temp Pulse Resp BP Pulse Ox 98.5 F 64 16 106/55 L 97 01/08/18 14:00 01/08/18 14:00 01/08/18 14:00 01/08/18 14:00 01/08/18 14:00 Oxygen Flow Rate (L/min) 2 Oxygen Delivery Method Room Air Weight: 171 lb 11.841 oz Body Mass Index (BMI) 29.5 General: Awake, Alert, Oriented x 3 HEENT: PERRL, EOMI, Sclera Non Icteric Neck: Supple, Good ROM, No Lymph Node Enlargement Lungs: Clear to auscultation Cardiovascular: Regular Rhythm, Normal S1, Normal S2, No Murmurs, No Rubs, No Gallops Vascular: No Carotid Bruits, Normal Femoral Pulses, Normal Radial Pulses, Normal Dorsalis Pedal Pulse, Normal Posterior Tibial Pulses Abdomen: Bowel Sounds Present, Soft, Non Tender, No HSM, No Organomegaly Extremities: No Cyanosis, No Clubbing, No edema Neurological: No Focal Motor or Sensory Deficit 01/08/18 10:26: WBC 4.0 L, RBC 5.31, Hgb 13.9, Hct 42.6, MCV 80.2 L, MCH 26.2 L, MCHC 32.6, RDW 13.8, RDW Differential 40.1, Plt Count 253, MPV 10.6, Immature Gran % (Auto) 0.000, Neut % (Auto) 68.1, Lymph % (Auto) 19.0, [place] % (Auto) 11.5 H, Eos % (Auto) 0.7, Baso % (Auto) 0.7, Absolute Neuts (auto) 2.7, Total Counted Not Reportable 01/08/18 10:26: Sodium 136, Potassium 3.1 L, Chloride 99, Carbon Dioxide 28.0, Anion Gap 9, BUN 15, Creatinine 1.15 H, Est GFR (MDRD) Af Amer 62, Est GFR (MDRD) Non-Af 51 L, BUN/Creatinine Ratio 13.0, Glucose 93, Calcium 8.1 L, Magnesium 2.0, Total Bilirubin 1.10 H, Troponin I < 0.015 01/08/18 10:26: Lactic Acid 0.9 01/08/18 10:26: Phosphorus 4.2 01/08/18 11:50: Urine Color Yellow, Urine Clarity Sl. Cloudy, Urine pH 6.0, Ur Specific [place] 1.020, Urine Protein 15 H, Urine Glucose (UA) Normal, Urine Ketones Negative, Urine Occult Blood 10 H, Urine Nitrite Negative, Urine Bilirubin Negative, Urine Urobilinogen Normal, Ur Leukocyte Esterase 500 H, Urine RBC 0 SEEN, Urine WBC 5-10 SEEN Rhythm: EKG: Sinus bradycardia with a rate of 40 bpm, subsequently sinus rhythm with a rate of 68 bpm no acute changes noted Assessment/Plan 1. Syncopal episode The initial syncopal episode was likely a vagal response also secondary to relative dehydration from her current status which may be infection related. In the emergency room the event was likely secondary to placement of the IV which was also clearly a vasodepressor syncopal episode. This was associated with bradycardia arrhythmia. * My recommendation at this time would be to hold her diuretic and replace electrolytes as appropriate * Obtain an echocardiogram to assess her left ventricular function * Continue to monitor her blood pressure * I really do not think that any further cardiac workup is recommended at this particular time. Her underlying condition for why she is tired needs to be evaluated and may be related to her recent surgery and or an infection which is currently not immediately apparent. * * Thank you for allowing me to participate in the care of your patient. Please don't hesitate to call if any issues arise
[2018-01-09] MEDS: Ketorolac 30 MG/ML Syringe IV (00:13)
[2018-01-09] MEDS: 0.9% Normal Saline 1,000 ML 125 ML IV (00:15)
[2018-01-09 02:54] VITALS: PULSE 69
[2018-01-09 03:35] VITALS: BP 120/71; PULSE 75; RESP 18; TEMP 36.9; O2SAT 93
[2018-01-09 06:18] LABS: Absolute Lymphocyte Count 0.92 X10^3/ul (0.83-4.51); Absolute Neutrophil Count 1.8 X10^3/uL (2.0-7.7); Basophil# 0.07 X10^3/uL; Basophil% 2.1 % (0-1); Eosinophil# 0.01 X10^3/uL; Eosinophils% 0.3 % (0-5); Hematocrit 37.4 % (37-47); Hemoglobin 12.1 g/dl (12.0-15.0); Lymphocyte # 0.92 X10^3/ul (4.0); Mean Corp Hgb Conc 32.4 g/gl (32-36); Mean Corpuscular Hgb 26.3 pg (27.0-32.0); Mean Corpuscular Volume 81.3 fL (81-99); Mean Platelet Vol. 10.1 fl (6.2-12.0); Monocyte# 0.44 X10^3/uL; Monocyte% 13.4 % (0-10); Neutrophil # 1.83 X10^3/uL (2.7-7.7); Neutrophil % 55.9 % (47-70); Platelet Count 207 K/mm3 (150-450); RBC Distribution Width CV 13.8 % (11.6-14.6); RBC Distribution Width SD 40.3 fl (35.1-43.9); White Blood Count 3.3 K/mm3 (4.4-11.0)
[2018-01-09 06:32] LABS: POSITIVE COUNT NO; POSITIVE DIFFERENTIAL NO; POSITIVE MORPHOLOGY NO
[2018-01-09 06:36] LABS: Anion Gap 7 (5-15); BUN 11 mg/dL (7-18); BUN/Creat Ratio 11.1 RATIO (10-20); Calcium,Total 6.9 mg/dL (8.5-10.1); Chloride 105 mmol/L (98-107); Creatinine, Serum 0.99 mg/dL (0.55-1.02); EST Glomerular Filtration Rate 61 mL/min (>60); Est Glom Filt Rate - Afr Amer 73 mL/min (>60); Estimated Creatinine Clearance 52.18 ml/min; Glucose 94 mg/dL (74-106); Potassium 3.8 mmol/L (3.5-5.1); Sodium Level 139 mmol/L (136-145)
[2018-01-09] MEDS: Levothyroxine 50 MCG Tablet PO (06:46)
[2018-01-09 06:50] VITALS: BP 119/77; BP 122/81; BP 127/81; PULSE 77; PULSE 86; PULSE 94
[2018-01-09 07:14] VITALS: PULSE 66
--- NOTE | 2018-01-09 07:17 | PN.CARD_ITS ---
Subjectve: Patient seen and evaluated. Appears to be doing well. Complains of possible migraine headaches Objective: Vital Signs Temp Pulse Resp BP Pulse Ox 98.4 F 77 18 119/77 93 01/09/18 03:35 01/09/18 06:50 01/09/18 03:35 01/09/18 06:50 01/09/18 03:35 Oxygen Flow Rate (L/min) 2 Oxygen Delivery Method Room Air Weight: 171 lb 11.841 oz Body Mass Index (BMI) 29.5 Orthostatic Vital Signs Start: 01/08/18 17:24 Freq: 0600 Status: Active Protocol: Activity Type Activity Date Activity User E-Sign Co-Sign Detail Recorded Client Recorded Date Recorded By Document 01/09/18 06:50 CAD [id number] 01/09/18 06:50 CAD 01/09/18 06:50 Orthostatic Vitals Standing -Blood Pressure (90/60-120/80 mm Hg) 122/81 H -Extremity Use Right Arm -Pulse Rate (60-100 beats/min) 94 Sitting -Blood Pressure (90/60-120/80 mm Hg) 127/81 H -Extremity Use Right Arm -Pulse Rate (60-100 beats/min) 86 Lying -Blood Pressure (90/60-120/80 mm Hg) 119/77 -Extremity Use Right Arm -Pulse Rate (60-100 beats/min) 77 Intake and Output for Last 24 Hours 01/07/18 01/08/18 01/09/18 23:59 23:59 23:59 Intake Total 480 / 480 2174 / 2174 Balance 480 / 480 2174 / 2174 General: Awake, Alert, Oriented x 3 HEENT: PERRL, EOMI, Sclera Non Icteric Neck: Supple, Good ROM, No Lymph Node Enlargement Lungs: Clear to auscultation Cardiovascular: Regular Rhythm, Normal S1, Normal S2, No Murmurs, No Rubs, No Gallops Vascular: No Carotid Bruits, Normal Femoral Pulses, Normal Radial Pulses, Normal Dorsalis Pedal Pulse, Normal Posterior Tibial Pulses Abdomen: Bowel Sounds Present, Soft, Non Tender, No HSM, No Organomegaly Extremities: No Cyanosis, No Clubbing, No edema Neurological: No Focal Motor or Sensory Deficit 01/08/18 10:26: WBC 4.0 L, RBC 5.31, Hgb 13.9, Hct 42.6, MCV 80.2 L, MCH 26.2 L, MCHC 32.6, RDW 13.8, RDW Differential 40.1, Plt Count 253, MPV 10.6, Immature Gran % (Auto) 0.000, Neut % (Auto) 68.1, Lymph % (Auto) 19.0, [place] % (Auto) 11.5 H, Eos % (Auto) 0.7, Baso % (Auto) 0.7, Absolute Neuts (auto) 2.7, Total Counted Not Reportable 01/08/18 10:26: Sodium 136, Potassium 3.1 L, Chloride 99, Carbon Dioxide 28.0, Anion Gap 9, BUN 15, Creatinine 1.15 H, Est GFR (MDRD) Af Amer 62, Est GFR (MDRD) Non-Af 51 L, BUN/Creatinine Ratio 13.0, Glucose 93, Calcium 8.1 L, Magnesium 2.0, Total Bilirubin 1.10 H, Troponin I < 0.015 01/08/18 10:26: Lactic Acid 0.9 01/08/18 10:26: Phosphorus 4.2 01/08/18 11:50: Urine Color Yellow, Urine Clarity Sl. Cloudy, Urine pH 6.0, Ur Specific [place] 1.020, Urine Protein 15 H, Urine Glucose (UA) Normal, Urine Ketones Negative, Urine Occult Blood 10 H, Urine Nitrite Negative, Urine Bilirubin Negative, Urine Urobilinogen Normal, Ur Leukocyte Esterase 500 H, Urine RBC 0 SEEN, Urine WBC 5-10 SEEN 01/09/18 05:20: WBC 3.3 L, RBC 4.60, Hgb 12.1, Hct 37.4, MCV 81.3, MCH 26.3 L, MCHC 32.4, RDW 13.8, RDW Differential 40.3, Plt Count 207, MPV 10.1, Immature Gran % (Auto) 0.300, Neut % (Auto) 55.9, Lymph % (Auto) 28.0, [place] % (Auto) 13.4 H, Eos % (Auto) 0.3, Baso % (Auto) 2.1 H, Absolute Neuts (auto) 1.8 L, Total Counted Not Reportable 01/09/18 05:20: Sodium 139, Potassium 3.8, Chloride 105, Carbon Dioxide 27.0, Anion Gap 7, BUN 11, Creatinine 0.99, Est GFR (MDRD) Af Amer 73, Est GFR (MDRD) Non-Af 61, BUN/Creatinine Ratio 11.1, Glucose 94, Calcium 6.9 L Rhythm: EKG: ECHO: Stress Test: Cardiac Cath: PCI: CT Surgery: Holter monitor: EPS: PPM: CXR: Chest CT Scan: Medical Necessity - Tobacco Use Smoking Status: Never smoker Tobacco Use: Non-smoker Assessment/Plan 1. Syncopal episode The initial syncopal episode was likely a vagal response also secondary to relative dehydration from her current status which may be infection related. In the emergency room the event was likely secondary to placement of the IV which was also clearly a vasodepressor syncopal episode. This was associated with bradycardia arrhythmia. * My recommendation at this time would be to hold her diuretic and replace electrolytes as appropriate * Obtain an echocardiogram to assess her left ventricular function * Continue to monitor her blood pressure * I really do not think that any further cardiac workup is recommended at this particular time. Her underlying condition for why she is tired needs to be evaluated and may be related to her recent surgery and or an infection and or her migraine which is currently not immediately apparent. * * Thank you for allowing me to participate in the care of your patient. Please don't hesitate to call if any issues arise * Will discharge home after her echocardiogram for outpatient follow-up.
--- NOTE | 2018-01-09 08:00 | MRI_ITS ---
STUDY: MRI BRAIN WITH AND WITHOUT CONTRAST REASON FOR EXAM: Female, 62 years old. 2 syncopal episodes in 1 day. TECHNIQUE: Standardized multiplanar fat and water weighted pulse sequences were obtained. 6 ml of Gadavist contrast material was administered intravenously for the contrast portion of the examination. COMPARISON: CT head without contrast 01/08/2018. FINDINGS: No restricted diffusion to suspect acute or subacute ischemic infarct. No focal signal abnormalities throughout the brain parenchyma. Normal prominent perivascular space in the left anterior commissure. Normal size of the ventricles and extra-axial spaces for the patient's age. Normal white matter tracts of the supratentorial brain. Normal bilateral basal ganglia. Normal thalami. There is no extra-axial fluid accumulation. Normal flow voids within the major intracranial circulation suggesting patency by spin echo criteria. Normal venous enhancement. There is no enhancing intra-axial or extra-axial abnormality. Normal sella turcica, pituitary gland, infundibular stalk, optic chiasm and hypothalamus. Normal tectal plate and pineal gland. Normal midbrain, dixon and medulla. Normal cerebellum. Normal basal cisterns. Normal bilateral temporal bones. Normal bilateral internal auditory canals. No demonstrated orbital abnormality, within the constraints of a routine brain study. Normal visualized paranasal sinuses. Normal calvarium and skull base. Multiple small round subcutaneous nodules in both sides of the scalp are of undetermined etiology. Normal visualized upper cervical spine. MRI/Brain W/WO Contrast IMPRESSION: 1. Normal unenhanced and enhanced MRI of the brain. 2. Multiple round subcutaneous nodules in both sides of the scalp. Etiology is unknown. 2 of them are visible as calcified subcutaneous nodules on recent CT. Please correlate with physical exam. Electronically Signed: Henry Sterling MD at 13:13 EST , Service support ,
[2018-01-09 09:35] VITALS: BP 128/76; PULSE 74; RESP 18; TEMP 36.9; O2SAT 96
[2018-01-09] MEDS: Rizatriptan Benzoate 5 MG Tablet PO (10:37)
[2018-01-09] MEDS: Triamterene 37.5MG/Hctz 25MG Capsule 1 CAP PO (10:38)
[2018-01-09] MEDS: Calcitriol 0.25 MCG Capsule PO (10:42)
[2018-01-09] MEDS: Lisinopril 20 MG Tablet PO (10:43)
[2018-01-09] MEDS: Enoxaparin 40 MG/0.4 ML Syringe SC (10:43)
[2018-01-09 11:11] VITALS: PULSE 72
[2018-01-09] MEDS: LORazepam 2 MG/ML Syringe 1 MG IV (11:53)
--- NOTE | 2018-01-09 13:27 | CON.PCM_ITS ---
Reason for Consult Date of Consultation: 01/09/18 Reason for Consultation: loss of consciousness History of Present Illness: The patient is a 62 year old female presents after two spells of loss of consciousness witnessed by boyfriend when she go out of bed in the middle of the night. next am felt light headed, improved when she assumed a supine position. no tongue biting, +urinary incontinence. no previous events. no recent illness, does report change in meds, had parathyroid and thyroid surgery two months ago, one month ago initiated synthroid. per admit h&p:The patient is a 62 year old F with a history of hypothyroidism and hypertension. She was admitted through the ED on 01/08/2018 with a complaint of syncopal episode. Patient states for the past few days she has been feeling very tired and had associated chills. The early hours of this morning, she was on her way to the bathroom when she passed out and hit the floor. She denies aware that she hit her head or not and states that just prior to passing out she had associated dizziness and lightheadedness. She passed out for ~ 1 minute. She came alone and denied any associated lethargy but states that as her partner was trying to help her get up, she passed out again. Partner states that she had associated jerking movements of her head and her arms but not her legs. Again this lasted about 1 minute and was associated with urinary incontinence but no fecal incontinence and she did not have any drowsiness or lethargy afterwards. She called her doctor's office but they advised her to come to the ED considering the seriousness of the situation. In the ED, vitals were essentially stable with heart rate of 68 and blood pressure 109 73 as well as respiratory rate of 12. However during review in the ED by the ED doctor, her pulse went down and she was noted to be bradycardic and EKG done at that time showed heart rate of 40 which resolved with administration of atropine. Labs done showed potassium of 3.1 and creatinine of 1.15 and chest x-ray showed no acute cardiopulmonary process. Brain CT was also otherwise negative. Is been admitted to be managed for syncopal episode. Past Medical History Allergies No Known Allergies Allergy (Verified 01/08/18 09:34) Home Medications: Ambulatory Orders Medication Instructions Recorded Calcitriol [Rocaltrol] 0.25 mg PO DAILY 01/08/18 Levothyroxine [Synthroid] 50 mcg PO DAILY 01/08/18 Lisinopril [Zestril] 5 mg PO DAILY 01/08/18 Triamterene 37.5MG/Hctz 25MG 1 cap PO DAILY 01/08/18 [Dyazide (G)] Surgical History: - - parathyroidectomy Psychiatric History: No pertinent psych hx Lives: Spouse/ Significant Other Smoking Status: Never smoker Tobacco Use: Non-smoker Alcohol: Occasional Drugs: None - *Family History Sibling History Items: Seizures - brother developed seizures after encephalitis Paternal History Items: Heart Disease Maternal History Items: Stroke Review of Systems Constitutional: Denies: Chills, Fever, Weight Change HEENT: Denies: Head Aches, Sinus Congestion, Sinus Drainage Cardiovascular: Denies: Chest Pain, Palpitations Respiratory: Denies: Cough, Shortness of breath at rest, Sputum production Gastrointestinal: Denies: Abdominal Pain, Nausea, Vomiting Genitourinary: Denies: Dysuria Musculoskeletal: Denies: Joint Pain, Joint Tenderness Skin: Denies: Rash, Wounds Neurological: Denies: Numbness, Tingling, Focal weakness Psychiatric: Denies: Anxiety, Depression, Homicidal Ideations, Suicidal Ideations Hematologic/ Lymphatic: Denies: Easy Bruising, Easy Bleeding Patient Problems: Active and Suspected Problems Syncope (Acute) - Physical Exam General: Alert, Oriented x3, Cooperative, No apparent distress Musculoskeletal: No Tenderness to Palpation of Joints or Extremities Neurological: Cranial nerves II-XII grossly intact, Deep Tendon Reflexes 2+/4 and Symmetrical, Neuro grossly intact, Motor Exam 5/5 strength throughout, Muscle tone normal, Sensory exam intact to light touch and pain, Coordination normal Psych/Mental Status: Normal Affect, Alert and oriented to time, place, person, mood and affect Vital Signs Temp Pulse Resp BP Pulse Ox 36.9 C 72 18 128/76 H 96 01/09/18 09:35 01/09/18 11:11 01/09/18 09:35 01/09/18 09:35 01/09/18 09:35 Oxygen Flow Rate (L/min) 2 Oxygen Delivery Method Room Air Weight: 77.9 kg Body Mass Index (BMI) 29.5 Orthostatic Vital Signs Start: 01/08/18 17:24 Freq: 0600 Status: Active Protocol: Activity Type Activity Date Activity User E-Sign Co-Sign Detail Recorded Client Recorded Date Recorded By Document 01/09/18 06:50 CAD [id number] 01/09/18 06:50 CAD 01/09/18 06:50 Orthostatic Vitals Standing -Blood Pressure (90/60-120/80) 122/81 H -Extremity Use Right Arm -Pulse Rate (60-100) 94 Sitting -Blood Pressure (90/60-120/80) 127/81 H -Extremity Use Right Arm -Pulse Rate (60-100) 86 Lying -Blood Pressure (90/60-120/80) 119/77 -Extremity Use Right Arm -Pulse Rate (60-100) 77 Intake and Output for Last 24 Hours 01/07/18 01/08/18 01/09/18 23:59 23:59 23:59 Intake Total 480 / 480 2654 / 2654 Balance 480 / 480 2654 / 2654 Laboratory Tests Past 24 Hrs 01/09/18 01/09/18 05:20 05:20 WBC 3.3 L RBC 4.60 Hgb 12.1 Hct 37.4 MCV 81.3 MCH 26.3 L MCHC 32.4 RDW 13.8 RDW Differential 40.3 Plt Count 207 MPV 10.1 Immature Gran % (Auto) 0.300 Neut % (Auto) 55.9 Lymph % (Auto) 28.0 [place] % (Auto) 13.4 H Eos % (Auto) 0.3 Baso % (Auto) 2.1 H Absolute Neuts (auto) 1.8 L Absolute Lymphs (auto) 0.92 Total Counted Not Reportable Sodium 139 Potassium 3.8 Chloride 105 Carbon Dioxide 27.0 Anion Gap 7 BUN 11 Creatinine 0.99 Estim Creat Clear Calc 52.18 Est GFR (MDRD) Af Amer 73 Est GFR (MDRD) Non-Af 61 BUN/Creatinine Ratio 11.1 Glucose 94 Calcium 6.9 L Assessment/Plan All Active Problems Syncope (Acute) syncope mri reviewed, normal, known subq lipomas suggest decrease bp meds ok to dc from neuro rx uti if clinically indicated
--- NOTE | 2018-01-09 14:13 | PCM.DC ---
- Discharge Diagnoses Current Active Problems: Current Active and Chronic Problems Syncope (Acute) You will use the following diet at home:: Cardiac Discharge Activity: Return to Normal Activity Weight Bearing Status: Weight bearing as tolerated Call your doctor if you observe: Shortness of breath, Dizziness, Fainting spells, Chest pain Instructions: What Is Syncope?, Diagnosing Syncope, Treating Syncope: Prevention Allergies/Adverse Reactions: Allergies No Known Allergies Allergy (Verified 01/08/18 09:34) Medications to take at Discharge Calcitriol [Rocaltrol] 0.25 mg PO DAILY 01/08/18 Levothyroxine [Synthroid] 50 mcg PO DAILY 01/08/18 Lisinopril [Zestril] 5 mg PO DAILY 01/08/18 Hydrochlorothiazide [Hctz] 25 mg PO DAILY #30 tab 01/09/18 Rizatriptan Benzoate [Maxalt] 5 mg PO 4X/DAY PRN PRN #30 tab 01/09/18 The following prescriptions were given: Hydrochlorothiazide [Hctz] 25 mg PO DAILY #30 tab Rizatriptan Benzoate [Maxalt] 5 mg PO 4X/DAY PRN PRN #30 tab PRN Reason: Migraine Symptoms Primary Care Physician: Care Physician,No Primary [Primary Care Provider] - Please follow up with your Primary Care Physician in: follow up with PCP in one week Test Results: Test results from this visit will be discussed in further detail at your follow-up appointment, if applicable. Please Follow Up With: Дмитрий Roth MD When: 2-3 weeks Please Follow Up With: Vinay Khanna MD When: 2-4 weeks Proposed Discharge Date: 01/09/18
--- NOTE | 2018-01-09 14:16 | DCINST_ITS ---
- Discharge Diagnoses Current Active Problems: Current Active and Chronic Problems Syncope (Acute) You will use the following diet at home:: Cardiac Discharge Activity: Return to Normal Activity Weight Bearing Status: Weight bearing as tolerated Call your doctor if you observe: Shortness of breath, Dizziness, Fainting spells, Chest pain Instructions: What Is Syncope?, Diagnosing Syncope, Treating Syncope: Preventio n Allergies/Adverse Reactions: Allergies No Known Allergies Allergy (Verified 01/08/18 09:34) Medications to take at Discharge Calcitriol [Rocaltrol] 0.25 mg PO DAILY 01/08/18 Levothyroxine [Synthroid] 50 mcg PO DAILY 01/08/18 Lisinopril [Zestril] 5 mg PO DAILY 01/08/18 Hydrochlorothiazide [Hctz] 25 mg PO DAILY #30 tab 01/09/18 Rizatriptan Benzoate [Maxalt] 5 mg PO 4X/DAY PRN PRN #30 tab 01/09/18 The following prescriptions were given: Hydrochlorothiazide [Hctz] 25 mg PO DAILY #30 tab Rizatriptan Benzoate [Maxalt] 5 mg PO 4X/DAY PRN PRN #30 tab PRN Reason: Migraine Symptoms Primary Care Physician: Care Physician,No Primary [Primary Care Provider] - Please follow up with your Primary Care Physician in: follow up with PCP in one week Test Results: Test results from this visit will be discussed in further detail at your follow- up appointment, if applicable. Please Follow Up With: Дмитрий Roth MD When: 2-3 weeks Please Follow Up With: Vinay Khanna MD When: 2-4 weeks Proposed Discharge Date: 01/09/18
--- NOTE | 2018-01-09 14:19 | PCM.DC.SUM ---
Discharge Date and Diagnosis - Problem List Patient Problems: Active and Suspected Problems Syncope (Acute) Date of Admission: 01/08/18 Date of Discharge: 01/09/18 - Primary Discharge Diagnosis Active and Suspected Problems Syncope (Acute) Hospital Course and Treatment Imaging Results: 01/09/18 08:00 MRI Brain [Brain W/WO Contrast] [MRI] Urgent Diagnostic Data Brain CT 01/08/18 10:11 IMPRESSION: Mild degree of mucosal thickening of the ethmoid sinuses. Electronically Signed: Georges Jules MD at 11:26 EST Tel [phone], Service support , Chest X-Ray 01/08/18 11:05 IMPRESSION: No acute abnormality is seen. Electronically Signed: Georges Jules MD at 11:27 EST Tel [phone], Service support , Brain MRI 01/09/18 08:00 IMPRESSION: 1. Normal unenhanced and enhanced MRI of the brain. 2. Multiple round subcutaneous nodules in both sides of the scalp. Etiology is unknown. 2 of them are visible as calcified subcutaneous nodules on recent CT. Please correlate with physical exam. Electronically Signed: Henry Sterling MD at 13:13 EST , Service support , neurology-Dr Roth Cardiology- Dr Khanna Operations: None Procedures: 2-D Echocardiogram Summary of Care Provided: The patient is a 62 year old F with a PMH of hypothyroidism and hypertension. She was admitted through the D with a complaint of syncopal episodes x 2, with associated jerking of her head and upper extremities. She had associated urinary incontinence, but no drowsiness. She had an episode of bradycardia in the ED whilst an IV line was being inserted. She was admitted and managed for syncopal episode. Cardiology and neurology were consulted. She had an echo done which showed EF of 60% and was otherwise normal. She did have bradycardia again but blood pressure remained low in the 90s and 100s. Neurology reviewed patient and did not think that most likely she had a seizure and thought he may have been medication induced. MRI done was also negative. Patient remained stable and was discharged home on 01/09/2018. She was continued on lisinopril 5 mg daily and her Maxide was discontinued and she was put on hydrochlorothiazide 25 mg daily. 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 Patient seen and examined prior to discharge. She complained of headache and said was similar to her migraine headaches that she is to have a long time ago and always resolve with Maxalt. Patient was given Maxalt which helped resolve headache. She denied any chest pain, abdominal pain, diarrhea vomiting. Review of signs otherwise negative. Patient was discharged with a script for Maxalt (Rizatriptan) for migraines. [] Patient Problems: Active and Suspected Problems Syncope (Acute) - Physical Exam General: Alert, Oriented x3, Cooperative, No apparent distress HEENT: Atraumatic, PERRLA, EOMI, Normocephalic Oral: Moist Mucosa Neck: Supple, No JVD, Negative Carotid Bruits Lungs: Clear to auscultation, Normal air movement, No rhonchi, No wheeze, No rales Cardiovascular: Regular rate, Regular Rhythm, Normal S1, Normal S2, No murmurs Abdomen: Bowel Sounds Present, Soft, Non Tender, Non-Distended, No Hepato-splenomegaly Extremities: No clubbing, No cyanosis, No edema, Capillary Refill Less than 3 Seconds Skin: No rashes, No breakdown Musculoskeletal: No Tenderness to Palpation of Joints or Extremities Lymphatic: No Cervical, Supraclavicular, or Inguinal Adenopathy Neurological: Cranial nerves II-XII grossly intact, Neuro grossly intact, Motor Exam 5/5 strength throughout Psych/Mental Status: Normal Affect, Appropriate, Alert and oriented to time, place, person, mood and affect Vital Signs Temp Pulse Resp BP Pulse Ox 98.4 F 72 18 128/76 H 96 01/09/18 09:35 01/09/18 11:11 01/09/18 09:35 01/09/18 09:35 01/09/18 09:35 Oxygen Flow Rate (L/min) 2 Oxygen Delivery Method Room Air Weight: 171 lb 11.841 oz Body Mass Index (BMI) 29.5 Orthostatic Vital Signs Start: 01/08/18 17:24 Freq: 0600 Status: Active Protocol: Activity Type Activity Date Activity User E-Sign Co-Sign Detail Recorded Client Recorded Date Recorded By Document 01/09/18 06:50 CAD [id number] 01/09/18 06:50 CAD 01/09/18 06:50 Orthostatic Vitals Standing -Blood Pressure (90/60-120/80) 122/81 H -Extremity Use Right Arm -Pulse Rate (60-100) 94 Sitting -Blood Pressure (90/60-120/80) 127/81 H -Extremity Use Right Arm -Pulse Rate (60-100) 86 Lying -Blood Pressure (90/60-120/80) 119/77 -Extremity Use Right Arm -Pulse Rate (60-100) 77 Intake and Output for Last 24 Hours 01/07/18 01/08/18 01/09/18 23:59 23:59 23:59 Intake Total 480 / 480 2654 / 2654 Balance 480 / 480 2654 / 2654 Laboratory Tests Past 24 Hrs 01/09/18 01/09/18 05:20 05:20 WBC 3.3 L RBC 4.60 Hgb 12.1 Hct 37.4 MCV 81.3 MCH 26.3 L MCHC 32.4 RDW 13.8 RDW Differential 40.3 Plt Count 207 MPV 10.1 Immature Gran % (Auto) 0.300 Neut % (Auto) 55.9 Lymph % (Auto) 28.0 [place] % (Auto) 13.4 H Eos % (Auto) 0.3 Baso % (Auto) 2.1 H Absolute Neuts (auto) 1.8 L Absolute Lymphs (auto) 0.92 Total Counted Not Reportable Sodium 139 Potassium 3.8 Chloride 105 Carbon Dioxide 27.0 Anion Gap 7 BUN 11 Creatinine 0.99 Estim Creat Clear Calc 52.18 Est GFR (MDRD) Af Amer 73 Est GFR (MDRD) Non-Af 61 BUN/Creatinine Ratio 11.1 Glucose 94 Calcium 6.9 L Discharge Diet: Low fat/ Low Cholesterol Discharge Activity: Return to Normal Activity Weight Bearing Status: Weight bearing as tolerated Call your doctor if you observe: Shortness of breath, Dizziness, Fainting spells, Chest pain Home Medications: Medications to take at Discharge Calcitriol [Rocaltrol] 0.25 mg PO DAILY 01/08/18 Levothyroxine [Synthroid] 50 mcg PO DAILY 01/08/18 Lisinopril [Zestril] 5 mg PO DAILY 01/08/18 Hydrochlorothiazide [Hctz] 25 mg PO DAILY #30 tab 01/09/18 Rizatriptan Benzoate [Maxalt] 5 mg PO 4X/DAY PRN PRN #30 tab 01/09/18 Following Prescrptions Were Given to Patient: Hydrochlorothiazide [Hctz] 25 mg PO DAILY #30 tab Rizatriptan Benzoate [Maxalt] 5 mg PO 4X/DAY PRN PRN #30 tab PRN Reason: Migraine Symptoms Primary Care Physician: Care Physician,No Primary [Primary Care Provider] - Please follow up with your Primary Care Physician in: follow up with PCP in one week Please Follow Up With: Дмитрий Roth MD When: 2-3 weeks Please Follow Up With: Vinay Khanna MD When: 2-4 weeks Patient Instructions: What Is Syncope?, Diagnosing Syncope, Treating Syncope: Prevention Disposition: Home Minutes spent on discharge:: 40 Patient Condition:: Stable Medical Necessity - Tobacco Use Smoking Status: Never smoker Tobacco Use: Non-smoker Meaningful Use Info Meaningful Use Diagnoses (Choose all that apply): None applicable Code Visit Inpatient E&M: 07182 Disch Hosp
--- NOTE | 2018-01-09 14:31 | DS.PCM_ITS ---
Discharge Date and Diagnosis - Problem List Patient Problems: Active and Suspected Problems Syncope (Acute) Date of Admission: 01/08/18 Date of Discharge: 01/09/18 - Primary Discharge Diagnosis Active and Suspected Problems Syncope (Acute) Hospital Course and Treatment Imaging Results: 01/09/18 08:00 MRI Brain [Brain W/WO Contrast] [MRI] Urgent Diagnostic Data Brain CT 01/08/18 10:11 IMPRESSION: Mild degree of mucosal thickening of the ethmoid sinuses. Electronically Signed: Georges Jules MD at 11:26 EST Tel [phone], Service support , Chest X-Ray 01/08/18 11:05 IMPRESSION: No acute abnormality is seen. Electronically Signed: Georges Jules MD at 11:27 EST Tel [phone], Service support , Brain MRI 01/09/18 08:00 IMPRESSION: 1. Normal unenhanced and enhanced MRI of the brain. 2. Multiple round subcutaneous nodules in both sides of the scalp. Etiology is unknown. 2 of them are visible as calcified subcutaneous nodules on recent CT. Please correlate with physical exam. Electronically Signed: Henry Sterling MD at 13:13 EST , Service support , neurology-Dr Roth Cardiology- Dr Khanna Operations: None Procedures: 2-D Echocardiogram Summary of Care Provided: The patient is a 62 year old F with a PMH of hypothyroidism and hypertension. She was admitted through the D with a complaint of syncopal episodes x 2, with associated jerking of her head and upper extremities. She had associated urinary incontinence, but no drowsiness. She had an episode of bradycardia in the ED whilst an IV line was being inserted. She was admitted and managed for syncopal episode. Cardiology and neurology were consulted. She had an echo done which showed EF of 60% and was otherwise normal. She did have bradycardia again but blood pressure remained low in the 90s and 100s. Neurology reviewed patient and did not think that most likely she had a seizure and thought he may have been medication induced. MRI done was also negative. Patient remained stable and was discharged home on 01/09/2018. She was continued on lisinopril 5 mg daily and her Maxide was discontinued and she was put on hydrochlorothiazide 25 mg daily. 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 Patient seen and examined prior to discharge. She complained of headache and said was similar to her migraine headaches that she is to have a long time ago and always resolve with Maxalt. Patient was given Maxalt which helped resolve headache. She denied any chest pain, abdominal pain, diarrhea vomiting. Review of signs otherwise negative. Patient was discharged with a script for Maxalt (Rizatriptan) for migraines. [] Patient Problems: Active and Suspected Problems Syncope (Acute) - Physical Exam General: Alert, Oriented x3, Cooperative, No apparent distress HEENT: Atraumatic, PERRLA, EOMI, Normocephalic Oral: Moist Mucosa Neck: Supple, No JVD, Negative Carotid Bruits Lungs: Clear to auscultation, Normal air movement, No rhonchi, No wheeze, No rales Cardiovascular: Regular rate, Regular Rhythm, Normal S1, Normal S2, No murmurs Abdomen: Bowel Sounds Present, Soft, Non Tender, Non-Distended, No Hepato- splenomegaly Extremities: No clubbing, No cyanosis, No edema, Capillary Refill Less than 3 Seconds Skin: No rashes, No breakdown Musculoskeletal: No Tenderness to Palpation of Joints or Extremities Lymphatic: No Cervical, Supraclavicular, or Inguinal Adenopathy Neurological: Cranial nerves II-XII grossly intact, Neuro grossly intact, Motor Exam 5/5 strength throughout Psych/Mental Status: Normal Affect, Appropriate, Alert and oriented to time, place, person, mood and affect Vital Signs Temp Pulse Resp BP Pulse Ox 98.4 F 72 18 128/76 H 96 01/09/18 09:35 01/09/18 11:11 01/09/18 09:35 01/09/18 09:35 01/09/18 09:35 Oxygen Flow Rate (L/min) 2 Oxygen Delivery Method Room Air Weight: 171 lb 11.841 oz Body Mass Index (BMI) 29.5 Orthostatic Vital Signs Start: 01/08/18 17:24 Freq: 0600 Status: Active Protocol: Activity Type Activity Date Activity User E-Sign Co-Sign Detail Recorded Client Recorded Date Recorded By Document 01/09/18 06:50 CAD [id number] 01/09/18 06:50 CAD 01/09/18 06:50 Orthostatic Vitals Standing -Blood Pressure (90/60-120/80) 122/81 H -Extremity Use Right Arm -Pulse Rate (60-100) 94 Sitting -Blood Pressure (90/60-120/80) 127/81 H -Extremity Use Right Arm -Pulse Rate (60-100) 86 Lying -Blood Pressure (90/60-120/80) 119/77 -Extremity Use Right Arm -Pulse Rate (60-100) 77 Intake and Output for Last 24 Hours 01/07/18 01/08/18 01/09/18 23:59 23:59 23:59 Intake Total 480 / 480 2654 / 2654 Balance 480 / 480 2654 / 2654 Laboratory Tests Past 24 Hrs 01/09/18 01/09/18 05:20 05:20 WBC 3.3 L RBC 4.60 Hgb 12.1 Hct 37.4 MCV 81.3 MCH 26.3 L MCHC 32.4 RDW 13.8 RDW Differential 40.3 Plt Count 207 MPV 10.1 Immature Gran % (Auto) 0.300 Neut % (Auto) 55.9 Lymph % (Auto) 28.0 Barnes % (Auto) 13.4 H Eos % (Auto) 0.3 Baso % (Auto) 2.1 H Absolute Neuts (auto) 1.8 L Absolute Lymphs (auto) 0.92 Total Counted Not Reportable Sodium 139 Potassium 3.8 Chloride 105 Carbon Dioxide 27.0 Anion Gap 7 BUN 11 Creatinine 0.99 Estim Creat Clear Calc 52.18 Est GFR (MDRD) Af Amer 73 Est GFR (MDRD) Non-Af 61 BUN/Creatinine Ratio 11.1 Glucose 94 Calcium 6.9 L Discharge Diet: Low fat/ Low Cholesterol Discharge Activity: Return to Normal Activity Weight Bearing Status: Weight bearing as tolerated Call your doctor if you observe: Shortness of breath, Dizziness, Fainting spells, Chest pain Home Medications: Medications to take at Discharge Calcitriol [Rocaltrol] 0.25 mg PO DAILY 01/08/18 Levothyroxine [Synthroid] 50 mcg PO DAILY 01/08/18 Lisinopril [Zestril] 5 mg PO DAILY 01/08/18 Hydrochlorothiazide [Hctz] 25 mg PO DAILY #30 tab 01/09/18 Rizatriptan Benzoate [Maxalt] 5 mg PO 4X/DAY PRN PRN #30 tab 01/09/18 Following Prescrptions Were Given to Patient: Hydrochlorothiazide [Hctz] 25 mg PO DAILY #30 tab Rizatriptan Benzoate [Maxalt] 5 mg PO 4X/DAY PRN PRN #30 tab PRN Reason: Migraine Symptoms Primary Care Physician: Care Physician,No Primary [Primary Care Provider] - Please follow up with your Primary Care Physician in: follow up with PCP in one week Please Follow Up With: Дмитрий Roth MD When: 2-3 weeks Please Follow Up With: Vinay Khanna MD When: 2-4 weeks Patient Instructions: What Is Syncope?, Diagnosing Syncope, Treating Syncope: Prevention Disposition: Home Minutes spent on discharge:: 40 Patient Condition:: Stable Medical Necessity - Tobacco Use Smoking Status: Never smoker Tobacco Use: Non-smoker Meaningful Use Info Meaningful Use Diagnoses (Choose all that apply): None applicable Code Visit Inpatient E&M: 98570 Disch Hosp
--- NOTE | 2018-01-09 16:01 | CHAPLAIN ---
Type of Pastoral Visit _x__ Initial Visit ___ Follow-up Visit ___ On-call Visit ___ General Patient Visit ___ Spiritual Assessment ___ Family Conference ___ Bereavement ___ Rapid Response ___ Code Blue ___ Other (describe below) Pastoral Care Referral From _x__ Patient ___ Family ___ Nurse ___ Physician ___ Manager Regulatory ___ Ordnance Officer ___ Other (describe below) Sacrament/Intervention _x__ Active listening ___ Anointing ___ Restoration ___ Bereavement ___ Communion _x__ Tanya exploration ___ ___ Life review _x__ Prayer ___ Reconciliation ___ Sacrament of Sick _x__ Supportive presence ___ Wedding ___ Other (describe below) Pastoral Comments
--- NOTE | 2018-01-15 08:35 | EEG ---
- Electroencephalogram Date of service 01/09/18 This is an 18 channel electroencephalogram performed on this 70-year-old male an episode of loss of consciousness while going to the bathroom in the middle of the night. Some associated shaking. 18 channel electroencephalogram is performed utilizing EKG reference leads, photic stimulation, and hyperventilation as well as the international 1020 electrode placement protocol. Background activity is 8-12 Hz symmetrically in the posterior leads which attenuates with eye-opening. Hyperventilation is performed for 3 minutes with good effort with no lateralizing or epileptiform changes in the post hyperventilatory phase was unremarkable. The patient experienced sleep during the recording, there were no epileptiform changes throughout the recording. Photic stimulation generates a normal symmetric driving response in the posterior leads and EKG rhythm strip was normal sinus rhythm throughout the recording. Impression: Normal awake and asleep electroencephalogram
== END 2018-01-09 14:14 | disposition home or self-care (01) ==
LOC: ED 10:18 → PCU 13:29
PROVIDERS: Admitting Provider Student in an Organized Health Care Education/Training Program; Emergency Provider Emergency Medicine; Visit Provider Student in an Organized Health Care Education/Training Program
DX: R55 Syncope and collapse (principal); Z23 Encounter for immunization; Z79.899 Other long term (current) drug therapy; I10 Essential (primary) hypertension; R32 Unspecified urinary incontinence; R42 Dizziness and giddiness; E06.3 Autoimmune thyroiditis; E87.6 Hypokalemia; E83.51 Hypocalcemia; G43.909 Migraine, unspecified, not intractable, without status migrainosus
CPT/HCPCS: 36415; 70450; 70553; 71046; 80048; 80053; 81001; 83605; 83735; 84100; 84443; 84484; 85025; 87040; 87086; 87088; 93005; 93306; 95819; 96361; 96372; 96374; 96375; 97161; 97165; 99218; 99285; A9585; J7030; 90686; A4216; G0378

== ENCOUNTER 2022-10-09 07:22 | Inpatient (IN) | payer BC, MEDICARE, SELFPAY ==
[2022-10-09] VITALS (12 sets, daily range): BP systolic 108–151; BP diastolic 51–114; PULSE 57–94; RESP 16–20; TEMP 35.6–37.1; O2SAT 96–99; BMI 29.1
--- NOTE | 2022-10-09 07:36 | EKG12_ITS ---
Test Reason : REPEAT Blood Pressure : / mmHG Vent. Rate : 055 BPM Atrial Rate : 055 BPM P-R Int : 188 ms QRS Dur : 082 ms QT Int : 450 ms P-R-T Axes : -09 016 019 degrees QTc Int : 430 ms Sinus bradycardia Otherwise normal ECG Confirmed by HONG RAYA MD ([id number]), features editor LAMONT ALEGRIA ([id number]) on 10/10/2022 1:28:29 PM Referred By: JARROD Confirmed By:HONG RAYA MD
--- NOTE | 2022-10-09 07:47 | EDS_ITS ---
HPI History of Present Illness Chief Complaint: Chest Pain Narrative Narrative: 67-year-old female presenting with epigastric pain and dyspepsia. She states she has had this intermittently for the last 3 days. She notes that she had an episode while she was walking which lasted about 20 minutes. Monday she had an episode which also lasted 20 minutes. Last night she ate dinner at about 6 PM and had a chicken salad sandwiches and chips later when she laid down she started to have the epigastric burning and dyspepsia. She states that if she vomits it does help with the pain and nausea. She states that sitting up makes it better and laying back makes it worse. She does not have a gallbladder. She is not heavy drinker. No history of pancreatitis. No history of cardiac disease. She does have hypertension. No DVT/PE risk factors. [facility] Medical History (Updated 10/09/22 @ 08:[address] Brianna Otto MD) Hypothyroidism Home Medications calcitriol 0.25 mcg capsule 0.25 mg PO DAILY supplement 01/08/18 [History Last Taken 01/07/18] levothyroxine 50 mcg tablet 50 mcg PO DAILY thyroid 01/08/18 [History Last Taken 01/08/18] lisinopril 5 mg tablet 5 mg PO DAILY blood pressure 01/08/18 [History Last Taken 01/07/18] hydrochlorothiazide 25 mg tablet 25 mg PO DAILY #30 tabs 01/09/18 [Rx Last Taken Unknown] rizatriptan 5 mg tablet 5 mg PO 4X/DAY PRN PRN Migraine Symptoms #30 tabs 01/09/18 [Rx Last Taken Unknown] Allergy/AdvReac Type Severity Reaction Status Date / Time No Known Allergies Allergy Verified 01/08/18 09:34 Social History Smoking Status: Never smoker ROS ROS ED Constitutional Constitutional ED: Denies chills, fever(s) or sweats Eyes Eyes: Denies blurry vision or change in vision ENT ENT ED: Denies ear pain or sore throat Cardiovascular Cardiovascular: Reports chest pain; Denies palpitations or racing heartbeat Respiratory/Chest Respiratory/Chest: Denies cough, dyspnea or sputum Gastrointestinal Gastrointestinal: Reports abdominal pain, nausea, vomiting and other; Denies constipation or diarrhea Genitourinary Genitourinary ED: Denies dysuria, hematuria or urinary frequency Musculoskeletal Musculoskeletal: Denies arthralgias, myalgias or neck pain Integumentary Denies abscess, Abrasions or rash Neurologic Neurologic: Denies headache(s), paresthesias or weakness Psychiatric Psychiatric: Denies anxiety, depression, suicidal ideation or suicidal thoughts Endocrine Endocrinology: Denies polydipsia or polyuria EXAM Physical Exam Const Vital Signs: 10/09/22 07:23 10/09/22 08:13 10/09/22 08:19 Temperature 96.0 F L Temperature Source Temporal Pulse Rate 67 61 Respiratory Rate 18 Respiratory Effort Blood Pressure 151/84 H 136/82 H Blood Pressure Mean 106 Pulse Ox 97 Oxygen Delivery Method Room Air Room Air 10/09/22 08:20 Temperature Temperature Source Pulse Rate Respiratory Rate Respiratory Effort Normal Non-Labored Blood Pressure Blood Pressure Mean Pulse Ox Oxygen Delivery Method Positive well nourished General Appearance ED: Negative for pallor HEENT Reports moist mucous membranes normocephalic and atraumatic Eyes PERRL and EOMs intact bilaterally Resp normal respiratory effort and clear to auscultation bilaterally Auscultation: Negative for rales, rhonchi or wheezes Cardio regular rate and regular rhythm GI GI Narrative: Epigastric tenderness. Negative Gomez sign. Extremity normal to inspection Neuro oriented x3 and CN's II-XII intact bilaterally Sensorium / Orientation: awake and alert Psych mental status grossly normal Skin General Skin Exam: Negative for jaundice or pallor Heart Score History: Slightly/Non-Suspicious ECG: Normal Age: >45 - <65 years Risk Factors: 1 or 2 Risk Factors Score: 2 MDM MDM MDM Narrative Medical decision making narrative: 67-year-old female with epigastric/chest pain. She is also had some dyspepsia and vomited a couple of times. Vomiting apparently makes this better. Sitting up better as well. Laying back makes it worse. She has not any fevers. No history of cardiac disease and no DVT/PE risk factors. Past medical history of hypertension, hypothyroidism. Differential includes acute coronary syndrome, pneumonia, GERD, gastritis, peptic ulcer disease, pancreatitis, colitis, dehydration, electrode abnormalities, anemia. CBC is obtained to assess white blood cell count, hemoglobin, platelets. BMP to assess renal function and electrolytes. LFT to assess liver enzymes. Lipase to assess for pancreatitis. We will try nitroglycerin trial see if this helps. She declines any antiemetics. She states she feels comfortable currently. We will obtain an EKG and high-sensitivity troponin to assess for ischemia and dysrhythmia. Chest x- ray to rule out pneumonia. Patient is PERC negative and I have low suspicion for PE. CBC shows white blood cell count of 11.8. Hemoglobin medic are stable. Platelets are normal. Creatinine slight elevated at 1.05. Total bilirubin 1.4. Direct bilirubin 0.33. Lipase is normal. High-sensitivity troponin came back at 4749. Patient started on heparin drip. She was given nitroglycerin initially but she said it did not help but it made her more nauseous and her pressure dropped for short while. She was given a liter normal saline. I discussed the case with Dr. Khanna who did come to the bedside to evaluate the patient and is going to take her to the [facility]vest[facility] Supervisor later. Chest x-ray on my interpretation shows no acute process. Radiologist interpretation agrees. KG my interpretation shows a normal sinus rhythm with a ventricular of 65 bpm without sign with very faint ST depressions V2, V3, V4, V5 when the patient's blood pressure dropped I did obtain a second EKG which shows a sinus bradycardia at a rate of 55 bpm. I do not see the cell ST depressions in the did earlier. Patient was discussed with hospitalist for admission. Hospitalist did request a D-dimer which will be added. This will be followed on the floor. Impression: 1. NSTEMI 2. Dyspepsia 3. Nausea/vomiting Lab Data Attestation: I reviewed the patient's lab results. Labs: Laboratory Results - last 24 hr 10/09/22 07:50 WBC 11.8 H RBC 5.04 Hgb 13.2 Hct 42.4 MCV 84.1 MCH 26.2 L MCHC 31.1 L RDW Std Deviation 40.7 RDW Coeff of Corrie 13.2 Plt Count 401 MPV 10.7 Immature Gran % (Auto) 0.400 Neut % (Auto) 78.2 H Lymph % (Auto) 15.4 L [place] % (Auto) 4.4 Eos % (Auto) 0.9 Baso % (Auto) 0.7 Absolute Neuts (auto) 9.2 H Absolute Lymphs (auto) 1.81 Nucleated RBC % 0 Sodium 138 Potassium 4.3 Chloride 104 Carbon Dioxide 28.0 Anion Gap 6 BUN 16 Creatinine 1.05 H Est GFR (MDRD) Af Amer 68 Est GFR (MDRD) Non-Af 56 L BUN/Creatinine Ratio 15.2 Glucose 104 Calcium 10.1 Total Bilirubin 1.40 H Direct Bilirubin 0.33 H AST 43 H ALT 26 Alkaline Phosphatase 106 Troponin I High Sens 4749 H* Total Protein 7.7 Albumin 3.8 Globulin 3.9 Lipase 61 Radiography Diagnostic Testing: Clinical Impression(s) from Imaging Studies Chest X-Ray 10/09/22 08:00 IMPRESSION: No acute pulmonary process Electronically Signed: Forrest Echevarria MD at 8:16 EDT Reading Location ID and State: [facility] / [place] , Service support , Discharge Plan Triage Chief Complaint: Chest Pain ED Provider: William Fermin Dx/Rx/DC Orders Prescriptions: No Action levothyroxine 50 MCG tablet 50 mcg PO DAILY lisinopril 5 MG tablet 5 mg PO DAILY Patient Comments: take 1 tablet by mouth once daily calcitriol 0.25 MCG capsule 0.25 mg PO DAILY hydrochlorothiazide 25 MG tablet 25 mg PO DAILY Qty: 30 2RF rizatriptan 5 MG tablet 5 mg PO 4X/DAY PRN PRN (Reason: Migraine Symptoms) Qty: 30 0RF Primary Care Provider: Care Physician,No Primary Referrals: Care Physician,No Primary [Primary Care Provider] -
[2022-10-09] MEDS: Aspirin 81 MG TAB.CHEW 324 MG PO (07:52)
--- NOTE | 2022-10-09 08:00 | RAD_ITS ---
STUDY: X-RAY CHEST REASON FOR EXAM: Female, 67 years old. Chest pain/pressure TECHNIQUE: PA and lateral views of the chest. COMPARISON: 01/08/2018 FINDINGS: EKG leads overlie the chest The lungs are clear and expanded. There is no demonstrated pleural abnormality. Normal size heart. Normal mediastinum and narinder. Normal visualized pulmonary arteries. Normal visualized aortic arch and descending thoracic aorta. Normal visualized thoracic spine. Normal visualized ribs, clavicles, and shoulders. There is no demonstrated abnormality of the visualized soft tissue structures of the upper abdomen. RAD/Chest 1 View (Portable) IMPRESSION: No acute pulmonary process Electronically Signed: Forrest Echevarria MD at 8:16 EDT ,
[2022-10-09 08:05] LABS: Absolute Lymphocyte Count 1.81 X10^3/uL (0.83-4.51); Absolute Neutrophil Count 9.2 X10^3/uL (2.0-7.7); Basophil# 0.08 X10^3/uL; Basophil% 0.7 % (0-1); Eosinophil# 0.11 X10^3/uL; Eosinophils% 0.9 % (0-5); Hematocrit 42.4 % (37-47); Hemoglobin 13.2 g/dL (12.0-15.0); Lymphocyte # 1.81 X10^3/ul (0.83-4.51); Lymphocyte % 15.4 % (19-41); Mean Corp Hgb Conc 31.1 g/dL (32-36); Mean Corpuscular Hgb 26.2 pg (27.0-32.0); Mean Corpuscular Volume 84.1 fL (81-99); Mean Platelet Vol. 10.7 fl (6.2-12.0); Monocyte# 0.52 X10^3/uL; Monocyte% 4.4 % (0-10); NRBC Flagged by Analyzer 0 % (0-5); Neutrophil % 78.2 % (47-70); Platelet Count 401 K/mm3 (150-450); RBC Distribution Width CV 13.2 % (11.6-14.6); RBC Distribution Width SD 40.7 fl (35.1-43.9); Red Blood Count 5.04 M/mm3 (4.2-5.4); White Blood Count 11.8 K/mm3 (4.4-11.0)
[2022-10-09] MEDS: Nitroglycerin SL (ED/IMG/CATH) 0.4 MG TABLET SL (08:13)
[2022-10-09] MEDS: Ondansetron 4 MG/2 ML Vial IV (08:13)
[2022-10-09 08:26] LABS: AST(SGOT) 43 U/L (15-37); Alanine Aminotransfer ALT/SGPT 26 U/L (13-56); Albumin, Serum 3.8 g/dL (3.2-5.0); Alkaline Phosphatase 106 U/L (45-117); Anion Gap 6 (5-15); BUN 16 mg/dL (7-18); BUN/Creat Ratio 15.2 RATIO (10-20); Bilirubin, Direct 0.33 mg/dL (0.00-0.30); Calcium,Total 10.1 mg/dL (8.5-10.1); Chloride 104 mmol/L (98-107); Creatinine, Serum 1.05 mg/dL (0.55-1.02); EST Glomerular Filtration Rate 56 mL/min (>60); Est Glom Filt Rate - Afr Amer 68 mL/min (>60); Globulin 3.9 g/dL (2.2-4.2); Glucose 104 mg/dL (74-106); Lipase 61 U/L (13-75); Potassium 4.3 mmol/L (3.5-5.1); Protein, Total 7.7 g/dL (6.4-8.2); Sodium Level 138 mmol/L (136-145); Troponin-I HS (w/2H Reflex) 4749 pg/mL (3.0-54.0)
--- NOTE | 2022-10-09 08:36 | EKG12_ITS ---
Test Reason : CP Blood Pressure : / mmHG Vent. Rate : 065 BPM Atrial Rate : 065 BPM P-R Int : 190 ms QRS Dur : 080 ms QT Int : 394 ms P-R-T Axes : 003 004 028 degrees QTc Int : 409 ms Normal sinus rhythm Normal ECG Confirmed by ELVER LEAL, HONG ([id number]), purchasing expeditor LAMONT ALEGRIA ([id number]) on 10/10/2022 1:28:45 PM Referred By: JARROD Confirmed By:HONG RAYA MD
--- NOTE | 2022-10-09 08:40 | HP.PCM.HOS_ITS ---
HPI - General General Date of Admission: 10/09/22 Date of Service: 10/09/22 Chief Complaint: chest pain HPI Narrative ANICETO MCGRATH, is a 67 F with a PMH as outlined who presents via the ED on 10/09/2022 with a complaint of chest pain which had been going on intermittently for about 3 days prior to admission. She also had epigastric pain and dyspepsia. Symptoms were exacerbated by walking. She ate dinner on the day before admission and started having the dyspepsia when she lay down. Vitals were temp of 96F and [place] of 67 as well as BP of 136/82, and he was saturating at 97% on room air. CBC showed wbc of 11.8, Hb of 13.2 and platelets of 401. Chemistry showd sodium of 138 and potassium of 4.3 as well as 1.05 . Total bilirubin is 1.4. Initial troponin was 4749. CXR showed no acute pulmonary process. D dimer not done. She hasnt had any recent long distance travel and has never had a PE or DVT. She is being admitted to be managed for nonstemi. [facility] Medical History (Updated 10/09/22 @ 09:[address] Vinay Khanna MD) Hypothyroidism Home Medications calcitriol 0.25 mcg capsule 0.25 mg PO DAILY supplement 01/08/18 [History Last Taken 01/07/18] levothyroxine 50 mcg tablet 50 mcg PO DAILY thyroid 01/08/18 [History Last Taken 01/08/18] rizatriptan 5 mg tablet 5 mg PO 4X/DAY PRN PRN Migraine Symptoms #30 tabs 01/09/18 [Rx Last Taken Unknown] calcium carbonate 500 mg calcium (1,250 mg) chewable tablet (Calcium 500) 1,000 mg PO DAILY supplement 10/09/22 [History Last Taken Unknown] fluticasone propionate 50 mcg/actuation nasal spray,suspension 1 spray intranasal Q12H PRN congestion 10/09/22 [History Last Taken Unknown] melatonin 5 mg capsule 5 mg PO QHS PRN sleep 10/09/22 [History Last Taken Unknown] aspirin 81 mg tablet,delayed release 81 mg PO BREAKFAST #30 tabs 10/10/22 [Rx Last Taken Unknown] atorvastatin 40 mg tablet 40 mg PO QHS #30 tabs 10/10/22 [Rx Last Taken Unknown] carvedilol 3.125 mg tablet 3.125 mg PO BID #60 tabs 10/10/22 [Rx Last Taken Unknown] isosorbide mononitrate 30 mg tablet,extended release 24 hr 30 mg PO DAILY #30 tabs 10/10/22 [Rx Last Taken Unknown] lisinopril 5 mg tablet 5 mg PO DAILY #30 tabs 10/10/22 [Rx Last Taken Unknown] nitroglycerin 0.4 mg sublingual tablet 0.4 mg sublingual Q5M PRN Cardiac/Chest Pain #30 tabs 10/10/22 [Rx Last Taken Unknown] Allergy/AdvReac Type Severity Reaction Status Date / Time No Known Allergies Allergy Verified 01/08/18 09:34 Family History other Social History Smoking Status: Never smoker ROS Constitutional Constitutional: Reports fatigue and malaise; Denies anorexia, chills, fever(s) or weakness Eyes Eyes: Denies change in vision ENT HEENT: Denies dysphagia or headache(s) Cardiovascular Cardiovascular: Reports chest pain and dyspnea on exertion; Denies edema, lightheadedness, orthopnea, palpitations, paroxysmal nocturnal dyspnea, rapid heart rate or syncope Respiratory/Chest Respiratory/Chest: Reports shortness of breath with exertion; Denies cough, dys pnea or shortness of breath at rest Gastrointestinal Gastrointestinal: Denies abdominal pain, constipation, diarrhea, dyspepsia, nausea or vomiting Musculoskeletal Musculoskeletal: Denies arthralgias Neurologic Neurologic: Denies confusion, dizziness, headache(s), numbness or seizures Psychiatric Psychiatric: Denies anxiety or depression Endocrine Endocrinology: Denies change in body appearance Vital Signs Vital Signs Vital Signs: 10/09/22 07:23 10/09/22 08:13 10/09/22 08:19 Temperature 96.0 F L Temperature Source Temporal Pulse Rate 67 61 Respiratory Rate 18 Respiratory Effort Blood Pressure 151/84 H 136/82 H Blood Pressure Mean 106 Pulse Ox 97 Oxygen Delivery Method Room Air Room Air 10/09/22 08:20 Temperature Temperature Source Pulse Rate Respiratory Rate Respiratory Effort Normal Non-Labored Blood Pressure Blood Pressure Mean Pulse Ox Oxygen Delivery Method Physical Exam Const alert, oriented x3 and no apparent distress General Appearance: cooperative HEENT head/scalp atraumatic, hearing grossly normal bilaterally, moist oral mucous mem branes and oropharynx normal Mouth: oral and palatal mucosa normal Eyes PERRL, EOMs intact bilaterally and conjunctivae normal Neck no lymphadenopathy, supple and no JVD Resp normal respiratory effort, no retractions, no use of accessory muscles and clear to auscultation bilaterally Cardio regular rate, regular rhythm, S1 normal heart sound, S2 normal heart sound and no murmurs GI normal to inspection, nondistended, normoactive bowel sounds, soft to palpation, non-tender and non-distended Extremity normal to inspection, full ROM and no clubbing, cyanosis or edema Neuro oriented x3, CN's II-XII intact bilaterally and moves all extremities Sensorium / Orientation: awake and alert Motor Exam: strength 5/5 throughout Psych affect normal Results Lab / Micro Data 10/10/22 04:42 10/10/22 04:42 Labs: Laboratory Results - last 24 hr 10/09/22 07:50: WBC 11.8 H, RBC 5.04, Hgb 13.2, Hct 42.4, MCV 84.1, MCH 26.2 L, MCHC 31.1 L, RDW Std Deviation 40.7, RDW Coeff of Corrie 13.2, Plt Count 401, MPV 10.7, Immature Gran % (Auto) 0.400, Neut % (Auto) 78.2 H, Lymph % (Auto) 15.4 L, [place] % (Auto) 4.4, Eos % (Auto) 0.9, Baso % (Auto) 0.7, Absolute Neuts (auto) 9.2 H, Absolute Lymphs (auto) 1.81, Nucleated RBC % 0, Sodium 138, Potassium 4.3, Chloride 104, Carbon Dioxide 28.0, Anion Gap 6, BUN 16, Creatinine 1.05 H, Est GFR (MDRD) Af Amer 68, Est GFR (MDRD) Non-Af 56 L, BUN/Creatinine Ratio 15.2, Glucose 104, Calcium 10.1, Total Bilirubin 1.40 H, Direct Bilirubin 0.33 H , AST 43 H, ALT 26, Alkaline Phosphatase 106, Troponin I High Sens 4749 H*, Total Protein 7.7, Albumin 3.8, Globulin 3.9, Lipase 61 Radiology Impression Chest X-Ray 10/09/22 08:00 IMPRESSION: No acute pulmonary process Electronically Signed: Forrest Echevarria MD at 8:16 EDT , Assessment & Plan Assessment/Plan (1) Chest pain: PLAN: Plan #Nonstemi * admit to PCU * initial troponin was >4000; has no history of PE and EKG showed no acute ST changes * started on heparin drip * get D dimer * SL nitroglycerin prn. PO aspirin and high intensity statin * consult cardiology * 2D echo ordered * * #Hypothyroidism: on synthroid #Hypertension; on HCTZ and lisinopril. IV hydralazine prn #History of migraines: on rizatriptan DVT prophylaxis: on heparin drip Code status: full code * Patient counseled extensively about different types of CODE STATUS including full code, DNR CCA and DNR CCA. Patient elects to be full code. * Total ebbn-mo-ihje time 16 minutes. Charges/Coding Visit Charges Inpatient E&M: 80971 Init Hosp L3 Procedures Hospitalists Procedures: 41610 Advncd Care Plan 30 Min
[2022-10-09] MEDS: 0.9% Normal Saline 1,000 ML 999 ML IV (09:02)
--- NOTE | 2022-10-09 09:28 | CON.PCM.CA_ITS ---
Assessment & Plan Assessment/Plan (1) NSTEMI (non-ST elevated myocardial infarction): PLAN: She presents with a non-ST elevation myocardial infarction with fairly classic unstable anginal symptoms. The plan at this point after discussion with her and the physicians would be to start aspirin * Intravenous heparin * High intensity statin * Consider early invasive approach with a cardiac catheterization. The risk benefits alternatives have been explained to her she understands and agrees to proceed. * * Addendum: Cardiac catheterization demonstrated normal left main coronary artery. Left anterior descending artery with no significant disease other than a small diagonal branch which is subtotally occluded. Left circumflex artery which is nondominant but large with the first obtuse marginal branch having 3 subdivisions all of which are tiny with severe diffuse disease. Dominant large right coronary artery with mild luminal irregularities. Left ventricular systolic dysfunction estimated ejection fraction 40 to 45% with Takotsubo like appearance. My suspicion is that this is more stress-induced cardiomyopathy with concomitant coronary artery disease present. Would recommend DC heparin at this time Start carvedilol 3. 125 twice a day Continue aspirin High intensity statin Imdur 30 mg daily Echocardiogram in a.m. (2) HTN (hypertension), benign: PLAN: We will continue her lisinopril at this present time. Thank you for allowing me to participate in the care of your patient. Please don't hesitate to call if any issues arise. HPI Consult Data Date of Consult: 10/09/22 HPI Narrative HPI Narrative: ANICETO MCGRATH, is a 67 F who presents to the emergency room this morning with chest discomfort which initially started a few days ago occurring with rest when she was going on her morning work-up. She described this as a pressure-like sensation as well as a heartburn across her chest and radiating into her throat. She initially thought that it was heartburn she did take some Tums with minimal relief. Later in the evening she started having some at night as well and had to take some antacid. There was minimal relief but she felt that if she could belch or vomit this would get better. This morning she started having the discomfort again and decided to present to the emergency room. She was evaluated here her EKG did not demonstrate any significant abnormalities but her cardiac enzymes were significantly elevated. Cardiology was called for further evaluation and management. [facility] Medical History (Updated 10/09/22 @ 09:[address] Vinay Khanna MD) Hypothyroidism Home Medications calcitriol 0.25 mcg capsule 0.25 mg PO DAILY supplement 01/08/18 [History Last Taken 01/07/18] levothyroxine 50 mcg tablet 50 mcg PO DAILY thyroid 01/08/18 [History Last Taken 01/08/18] rizatriptan 5 mg tablet 5 mg PO 4X/DAY PRN PRN Migraine Symptoms #30 tabs 01/09/18 [Rx Last Taken Unknown] calcium carbonate 500 mg calcium (1,250 mg) chewable tablet (Calcium 500) 1,000 mg PO DAILY supplement 10/09/22 [History Last Taken Unknown] fluticasone propionate 50 mcg/actuation nasal spray,suspension 1 spray intranasal Q12H PRN congestion 10/09/22 [History Last Taken Unknown] lisinopril 20 mg tablet 20 mg PO DAILY BP 10/09/22 [History Last Taken Unknown] melatonin 5 mg capsule 5 mg PO QHS PRN sleep 10/09/22 [History Last Taken Unknown] Allergy/AdvReac Type Severity Reaction Status Date / Time No Known Allergies Allergy Verified 01/08/18 09:34 Family History other other (Family history of coronary disease with father having bypass surgery.) Social History Smoking Status: Never smoker ROS Constitutional Constitutional: Denies fever(s) or weight loss Eyes Eyes: Reports systems reviewed and no addt'l complaints, except as documented ENT HEENT: Reports systems reviewed and no addt'l complaints, except as documented Cardiovascular Cardiovascular: Reports chest pain at rest and chest pain with activity; Denies dyspnea at rest, dyspnea on exertion, edema, palpitations or paroxysmal nocturnal dyspnea Respiratory/Chest Respiratory/Chest: Denies dyspnea on exertion, productive cough, shortness of breath at rest or shortness of breath with exertion Gastrointestinal Gastrointestinal: Denies change in bowel habits, nausea, vomiting or weight changes Genitourinary Genitourinary: Denies difficulty urinating Musculoskeletal Musculoskeletal: Denies joint stiffness or muscle weakness Integumentary Integumentary: Denies lesions Neurologic Neurologic: Denies dizziness or syncope Psychiatric Psychiatric: Denies anxiety Endocrine Endocrinology: Denies excessive sweating or fatigue Hematologic/Lymphatic Hematologic/Lymphatic: Denies anemia Allergic/Immunologic Allergic/Immunologic: Denies seasonal rhinorrhea Physical Exam Const alert, oriented x3 and no apparent distress General Appearance: cooperative HEENT hearing grossly normal bilaterally Head and Scalp: atraumatic Eyes EOMs intact bilaterally Neck General: normal visual inspection Chest inspection of chest normal and palpation of chest normal Resp normal respiratory effort Auscultation: clear to auscultation bilaterally Cardio regular rate, regular rhythm, S1 normal heart sound and S2 normal heart sound Jugular Venous Distention: JVD GI normal to inspection, nondistended, normoactive bowel sounds Extremity normal capillary refill and no pedal edema Peripheral Pulses: Yes pulses 2+ throughout and femoral pulses present Skin no rashes or lesions noted Neuro oriented x3 and CN's II-XII intact bilaterally Psych Appearance: grossly normal and appropriate Risk Stratification Risk Stratification Applicable: Yes Age >/= 65: Yes >/= 3 CAD Risk Factors (HTN, HLD, DM, family hx of CAD, or current smoker): Yes Aspirin Use in the Past 7 Days: No Severe Angina (>/= episodes in 24 hours): Yes EKG ST Changes >/= 0.5mm: No Positive Cardiac Marker: Yes DIA Risk Stratification Score: 4 DIA % Risk: 20% Risk Objective Data Vital Signs: Vital Signs Temp Pulse Resp BP Pulse Ox O2 Del Method 96.0 F L 61 18 136/82 H 97 Room Air 10/09/22 07:23 10/09/22 08:13 10/09/22 07:23 10/09/22 08:13 10/09/22 07:23 10/09/22 08:19 Oxygen Delivery Method Room Air Weight: 169 lb 12.095 oz Body Mass Index (BMI) 29.1 Lab / Micro Data 10/09/22 07:50 10/09/22 07:50 Labs: Laboratory Results - last 24 hr 10/09/22 07:50: WBC 11.8 H, RBC 5.04, Hgb 13.2, Hct 42.4, MCV 84.1, MCH 26.2 L, MCHC 31.1 L, RDW Std Deviation 40.7, RDW Coeff of Corrie 13.2, Plt Count 401, MPV 10.7, Immature Gran % (Auto) 0.400, Neut % (Auto) 78.2 H, Lymph % (Auto) 15.4 L, [place] % (Auto) 4.4, Eos % (Auto) 0.9, Baso % (Auto) 0.7, Absolute Neuts (auto) 9.2 H, Absolute Lymphs (auto) 1.81, Nucleated RBC % 0, Sodium 138, Potassium 4.3, Chloride 104, Carbon Dioxide 28.0, Anion Gap 6, BUN 16, Creatinine 1.05 H, Est GFR (MDRD) Af Amer 68, Est GFR (MDRD) Non-Af 56 L, BUN/Creatinine Ratio 15.2, Glucose 104, Calcium 10.1, Total Bilirubin 1.40 H, Direct Bilirubin 0.33 H , AST 43 H, ALT 26, Alkaline Phosphatase 106, Troponin I High Sens 4749 H*, Total Protein 7.7, Albumin 3.8, Globulin 3.9, Lipase 61 Rhythm Strip Rhythm Strip: Sinus Rhythm Cardiology Labs/Tests 10/09/22 07:50: WBC 11.8 H, RBC 5.04, Hgb 13.2, Hct 42.4, MCV 84.1, MCH 26.2 L, MCHC 31.1 L, Plt Count 401, MPV 10.7, Immature Gran % (Auto) 0.400, Neut % (Auto) 78.2 H, Lymph % (Auto) 15.4 L, [place] % (Auto) 4.4, Eos % (Auto) 0.9, Baso % (Auto) 0.7, Absolute Neuts (auto) 9.2 H, Nucleated RBC % 0, Sodium 138, Potassium 4.3, Chloride 104, Carbon Dioxide 28.0, Anion Gap 6, BUN 16, Creatinine 1.05 H, Est GFR (MDRD) Af Amer 68, Est GFR (MDRD) Non-Af 56 L, BUN/Creatinine Ratio 15.2, Glucose 104, Calcium 10.1, Total Bilirubin 1.40 H, Direct Bilirubin 0.33 H Rhythm: EKG: Normal sinus rhythm with no acute changes ECHO: Stress Test: Cardiac Cath: PCI: CT Surgery: Holter monitor: EPS: PPM: CXR: Chest CT Scan: Radiography Diagnostic Testing: Radiology Impression Chest X-Ray 10/09/22 08:00 IMPRESSION: No acute pulmonary process Electronically Signed: Forrest Echevarria MD at 8:16 EDT ,
[2022-10-09] MEDS: HEPARIN/D5w 25,000 UNITS 25,000 UNITS/250 ML IV.SOLN. 9 UNITS CONT INF (09:32)
[2022-10-09] MEDS: Heparin Injection (Vial) 5,000 UNIT/ML VIAL 4000 UNIT IV (09:33)
[2022-10-09 09:37] LABS: Prothrombin Time (Protime)PT. 13.5 SECONDS (11.7-14.9)
[2022-10-09 09:38] LABS: Partial Thromboplast Time 29.9 Seconds (24.1-36.2)
[2022-10-09 09:52] LABS: D-Dimer Quantitative (DVT/PE) 1.08 FEU/ug/m (0.27-0.49)
[2022-10-09 09:59] LABS: Reflex Troponin-HS? (from REC) Y
--- NOTE | 2022-10-09 10:09 | ECHOD_ITS ---
Reason For Study: NSTEMI Procedure This was a 2D Doppler, Color Flow transthoracic echocardiogram. Exam performed portable in patient room. Left Ventricle Normal LV size. Mild segmental systolic dysfunction (see wall motion). The left ventricular ejection fraction is 50 %. Mid-Lateral : Hypokinetic. Lateral [place] : Hypokinetic. Right Ventricle Normal RV size. Normal systolic function. Atria Normal left atrium. Normal right atrium. Mitral Valve Normal mitral valve. Tricuspid Valve Normal tricuspid valve. Mild (1+) tricuspid valve insufficiency. Pulmonary artery systolic pressure is 24 mmHg. Aortic Valve Normal aortic valve. Trisinus/trileaflet aortic valve. Mild (1+) aortic valve insufficiency. Pulmonic Valve Normal pulmonic valve. Mild (1+) pulmonic valve insufficiency. Great Vessels Normal aortic root. The pulmonary artery is normal size. Normal inferior vena cava. Pericardium/Pleural No pericardial effusion. MMode/2D Measurements & Calculations LVIDd: 3.1 cm IVSd: 1.0 cm Ao root diam: 3.6 cm LVIDs: 2.3 cm LVPWd: 0.82 cm RVDd: 3.2 cm FS: 26.5 % LAV(MOD-bp): 29.6 ml LVAd ap4: 28.9 cm2 SV(MOD-sp4): 39.9 ml LAV(MOD-bp) Indexed: 16.3 ml/m2 LVLd ap4: 8.4 cm LAV(MOD-sp2): 29.6 ml EDV(MOD-sp4): 77.8 ml LAV(MOD-sp4): 22.4 ml EDV(sp4-el): 84.6 ml LVAs ap4: 18.5 cm2 LVLs ap4: 7.0 cm ESV(MOD-sp4): 37.8 ml ESV(sp4-el): 41.4 ml EF(MOD-sp4): 51.4 % EF(sp4-el): 51.1 % SV(sp4-el): 43.2 ml LA A4 area: 10.8 cm2 LA dimension(2D): 3.6 cm RA A4 area: 9.8 cm2 TAPSE: 1.8 cm Time Measurements MV dec time: 0.18 sec Doppler Measurements & Calculations MV E max delbert: 69.2 cm/sec Lat Peak E' Delbert: 8.1 cm/sec Med Peak E' Delbert: 7.8 cm/sec MV A max delbert: 68.1 cm/sec E/E' lat: 8.6 E/E' med: 8.9 MV E/A: 1.0 Ao V2 max: 105.2 cm/sec AI max delbert: 371.6 cm/sec MV dec slope: 385.8 cm/sec2 Ao max P.4 mmHg AI max P.3 mmHg Ao V2 mean: 76.8 cm/sec Ao mean P.6 mmHg AI dec slope: 154.5 cm/sec2 Ao V2 VTI: 28.3 cm AI P1/2t: 704.5 msec AV (velocity ratio): 0.69 LV V1 max: 82.6 cm/sec PA V2 max: 70.3 cm/sec TR max delbert: 231.7 cm/sec LV V1 max P.7 mmHg TR max P.5 mmHg LV V1 mean P.4 mmHg LV V1 mean: 54.4 cm/sec LV V1 VTI: 19.5 cm ECHO/Echo Complete Interpretation Summary Normal LV size. Mild segmental systolic dysfunction (see wall motion). The left ventricular ejection fraction is 50 %. Mild (1+) tricuspid valve insufficiency. Pulmonary artery systolic pressure is 24 mmHg. Ordering Physician: Brianna Otto Performed By: Jo Ann Larkin RDCS
[2022-10-09 10:41] LABS: Troponin-I HS 5686 pg/mL (3.0-54.0)
--- NOTE | 2022-10-09 12:38 | CL.D_ITS ---
Patient Name: ANICETO MCGRATH Study Date: 10/09/2022 Performing: Vinay Khanna MD Ht: 64 inches 162.56 cm : 1955 Wt: 170 lbs 77 kg Age: 67 Gender: female BSA: 1.82 PROCEDURE(S) PERFORMED [id number])LHC/COR/LV CLINICAL PROFILE AND INDICATIONS Indications: ACS <= 24 hrs Heart Failure: None Stress/Imaging Stress/Image Study Performed: No CAD Presentations: Non-STEMI. Symptom onset Date/Time: 10/09/22 Time Not Available CONCLUSIONS Single-vessel coronary disease involving sidebranches of the obtuse marginal branch and mild disease of the left anterior descending artery and right coronary artery. Left ventricular systolic dysfunction noted consistent with Takotsubo cardiomyopathy. RECOMMENDATIONS Medical therapy DESCRIPTION OF PROCEDURE The patient arrived to the procedure lab. The risks and benefits of the procedure as well as a full description of our services here and current unavailability of surgical backup were fully explained to the patient and/or their significant other prior to the catheterization. The Timeout was completed, verifying the correct patient and procedure. The patient's procedural site was prepped and draped in the usual fashion. Local anesthetic was given subcutaneously to right radial region with Lidocaine 2%. Using a modified Seldinger technique, arterial access was obtained via the right radial artery, a 6Fr sheath was inserted. Right Coronary Artery selective angiography was then performed in multiple views using a 5 Fr. 4.0 Walland catheter. Left Coronary Artery selective angiography was performed in multiple views using a 5 Fr. JL3.5 catheter. Left Ventriculography was performed in THOMPSON projection using a 5 Fr. Pigtail catheter. LV to AO pullback pressures were then recorded.The arterial sheath was pulled and a TR Band was applied for hemostasis 8cc of air CORONARY ANGIOGRAPHY DOMINANCE: Right Dominant LEFT HEART ASSESSMENT Left Ventricular Ejection Fraction: by LV Gram 45 % Anterior Hypokinesis - Moderate Consistent with Takotsubo cardiomyopathy. LEFT MAIN: Angiographically normal LEFT ANTERIOR DESCENDING ARTERY: Mild luminal irregularities less than 30% DIAGONAL 1: Mid - Diffusely diseased up to 70 % CIRCUMFLEX ARTERY: Medium size vessel which gives off a first obtuse marginal branch which trifurcates in all branches of the trifurcation appeared to be rather small with diffuse disease. RIGHT CORONARY ARTERY: Mild luminal irregularities less than 30% COMPLICATIONS No Complications PROCEDURE MEDICATIONS Fentanyl 50 mcg IV Versed 1 mg IV Oxygen: 2 L/min via nasal cannula Heparin given IA 10/09/2022 11:28:17 Verapamil 2.5mg, Ntg 100mcgs, 3000 units of Heparin given IA 10/09/2022 11:28:17 SUMMARY OF HEMODYNAMIC DATA Time AIR REST ECG 11:17:48 AO 128/66 (86) SA 11:34:51 LV 117/7, 13 11:53:07 LV 125/8, 18 11:53:14 LV 110/18, 22 11:53:55 LVp 117/19, 22 11:54:04 LVp 124/7, 14 11:54:50 AOp 132/76 (102) 11:54:55 Signed By Vinay Khanna MD On 10/09/2022 12:37:43 Vinay Khanna MD
[2022-10-09] MEDS: Isosorbide Mononitrate 30 MG Tablet PO (14:29)
[2022-10-09] MEDS: Acetaminophen 325 MG Tablet 650 MG PO (18:38)
[2022-10-09] MEDS: oxyCODONE 5 MG Tablet PO (21:55)
[2022-10-09] MEDS: MELATONIN 10 MG TABLET 5 MG PO (21:56)
[2022-10-09] MEDS: Atorvastatin Calcium 40 MG Tablet PO (21:56)
[2022-10-09] MEDS: Carvedilol 3.125 MG TABLET PO (21:56)
[2022-10-09] MEDS: Calcitriol 0.25 MCG Capsule PO (21:56)
[2022-10-10] VITALS (7 sets, daily range): BP systolic 113–122; BP diastolic 74–81; PULSE 54–61; RESP 14–16; TEMP 36.4–36.6; O2SAT 94–97
[2022-10-10 05:14] LABS: Absolute Lymphocyte Count 1.98 X10^3/uL (0.83-4.51); Absolute Neutrophil Count 6.8 X10^3/uL (2.0-7.7); Basophil# 0.09 X10^3/uL; Basophil% 0.9 % (0-1); Hematocrit 35.4 % (37-47); Hemoglobin 11.4 g/dL (12.0-15.0); Lymphocyte # 1.98 X10^3/ul (0.83-4.51); Lymphocyte % 19.9 % (19-41); Mean Corp Hgb Conc 32.2 g/dL (32-36); Mean Corpuscular Hgb 26.6 pg (27.0-32.0); Mean Corpuscular Volume 82.7 fL (81-99); Mean Platelet Vol. 10.5 fl (6.2-12.0); Monocyte# 0.74 X10^3/uL; Monocyte% 7.5 % (0-10); NRBC Flagged by Analyzer 0 % (0-5); Neutrophil % 68.5 % (47-70); Platelet Count 332 K/mm3 (150-450); RBC Distribution Width CV 13.5 % (11.6-14.6); RBC Distribution Width SD 40.6 fl (35.1-43.9); Red Blood Count 4.28 M/mm3 (4.2-5.4); White Blood Count 9.9 K/mm3 (4.4-11.0)
[2022-10-10] MEDS: Levothyroxine 50 MCG Tablet PO (05:26)
[2022-10-10] MEDS: Rizatriptan Benzoate 5 MG Tablet PO ×2 (05:26→11:36)
[2022-10-10 05:52] LABS: Anion Gap 5 (5-15); BUN 13 mg/dL (7-18); BUN/Creat Ratio 12.3 RATIO (10-20); Calcium,Total 8.4 mg/dL (8.5-10.1); Chloride 104 mmol/L (98-107); Cholesterol 160 mg/dL (200); Creatinine, Serum 1.06 mg/dL (0.55-1.02); EST Glomerular Filtration Rate 55 mL/min (>60); Est Glom Filt Rate - Afr Amer 67 mL/min (>60); Estimated Creatinine Clearance 45.69 ml/min; Glucose 107 mg/dL (74-106); High Density Lipoprotein 69 mg/dL; Potassium 4.3 mmol/L (3.5-5.1); Sodium Level 137 mmol/L (136-145); Triglycerides 116 mg/dL; Very Low Density Lipoprotein 23 mg/dL (5-40)
--- NOTE | 2022-10-10 07:24 | CT_ITS ---
EXAM: CT ANGIOGRAPHY CHEST WITHOUT AND WITH INTRAVENOUS CONTRAST CLINICAL INDICATION: Chest pain. Elevated d-dimer. TECHNIQUE: Helically acquired angiography images were obtained of the chest without and with intravenous contrast. This CT exam was performed using one or more of the following dose reduction techniques: automated exposure control, adjustment of the mA and/or kV according to patient size, and/or use of iterative reconstruction technique. MIP reconstructed images were created and reviewed. CONTRAST: IV 100mL Isovue-370 RADIATION DOSE: CTDIvol = 13.59 mGy, DLP = 218 mGy-cm COMPARISON: No relevant prior studies available. FINDINGS: PULMONARY ARTERIES: Unremarkable. Normal in caliber. No evidence of pulmonary embolism. AORTA: Unremarkable. Normal in caliber. No evidence of dissection. GREAT VESSELS OF AORTIC ARCH: Unremarkable. Normal in caliber. No evidence of dissection. LUNGS AND PLEURAL SPACES: Minimal subsegmental atelectasis in the left posterior lung base. No pleural effusion or thickening. No pneumothorax. No suspicious pulmonary nodules or infiltrates. HEART: Unremarkable. Heart size is normal. No pericardial effusion. No significant coronary artery calcifications. MEDIASTINUM: Unremarkable. No mediastinal or hilar adenopathy. Esophagus is unremarkable. No hiatal hernia. THYROID: Unremarkable. No thyroid lesions. BONES/JOINTS: Unremarkable. No suspicious lytic or blastic abnormality. CT/CTA Chest W/WO Contrast IMPRESSION: 1. No CTA evidence of pulmonary thromboemboli, thoracic aortic aneurysm or dissection. 2. No acute chest abnormality or suspicious infiltrates. Electronically Signed: Henry Sterling MD at 8:39 EDT ,
[2022-10-10] MEDS: Acetaminophen 325 MG Tablet 650 MG PO ×2 (09:06→15:56)
[2022-10-10] MEDS: Ondansetron 4 MG/2 ML Vial IV (09:07)
[2022-10-10] MEDS: Carvedilol 3.125 MG TABLET PO (09:08)
[2022-10-10] MEDS: Aspirin E.C. 81 MG Tablet PO (09:08)
[2022-10-10] MEDS: Calcium Carbonate 500 MG Tablet 1000 MG PO (09:08)
[2022-10-10] MEDS: Lisinopril 5 MG Tablet PO (09:09)
[2022-10-10] MEDS: hydroCHLOROthiazide 25 MG Tablet PO (09:09)
[2022-10-10] MEDS: Isosorbide Mononitrate 30 MG Tablet PO (09:09)
--- NOTE | 2022-10-10 09:14 | PCM.DC.SUM ---
Providers Date of Admission: 10/09/22 Date of Discharge: 10/10/22 Primary Care Physician: Radha Primary Care Phys Consultations 10/09/22 10:09 Consult: Cardiology Routine Consulting Provider: Vinay Khanna Reason for Consult: nonstemi EMERGENT Consult: No MD Notified: Yes Date Notified: 10/09/22 Time Notified: 09:26 Method of Notification: Verbal Reason For Visit: NONSTEMI Diagnosis Discharge Diagnosis (1) NSTEMI (non-ST elevated myocardial infarction): Status: Acute Code(s): I21.4 - Non-ST elevation (NSTEMI) myocardial infarction (2) HTN (hypertension), benign: Status: Acute Code(s): I10 - Essential (primary) hypertension Plan #Nonstemi admit to PCU initial troponin was >4000; has no history of PE and EKG showed no acute ST changes started on heparin drip get D dimer SL nitroglycerin prn. PO aspirin and high intensity statin consult cardiology 2D echo ordered #Hypothyroidism: on synthroid #Hypertension; on HCTZ and lisinopril. IV hydralazine prn #History of migraines: on rizatriptan DVT prophylaxis: on heparin drip Code status: Medications at Discharge Home Medications calcitriol 0.25 mcg capsule 0.25 mg PO DAILY supplement 01/08/18 levothyroxine 50 mcg tablet 50 mcg PO DAILY thyroid 01/08/18 rizatriptan 5 mg tablet 5 mg PO 4X/DAY PRN PRN Migraine Symptoms #30 tabs 01/09/18 calcium carbonate 500 mg calcium (1,250 mg) chewable tablet (Calcium 500) 1,000 mg PO DAILY supplement 10/09/22 fluticasone propionate 50 mcg/actuation nasal spray,suspension 1 spray intranasal Q12H PRN congestion 10/09/22 melatonin 5 mg capsule 5 mg PO QHS PRN sleep 10/09/22 aspirin 81 mg tablet,delayed release 81 mg PO BREAKFAST #30 tabs 10/10/22 atorvastatin 40 mg tablet 40 mg PO QHS #30 tabs 10/10/22 carvedilol 3.125 mg tablet 3.125 mg PO BID #60 tabs 10/10/22 isosorbide mononitrate 30 mg tablet,extended release 24 hr 30 mg PO DAILY #30 tabs 10/10/22 lisinopril 5 mg tablet 5 mg PO DAILY #30 tabs 10/10/22 nitroglycerin 0.4 mg sublingual tablet 0.4 mg sublingual Q5M PRN Cardiac/Chest Pain #30 tabs 10/10/22 Hospital Course Operations None Procedures 2-D Echocardiogram and Cardiac catheterization Summary of Care Provided Minutes Spent on Discharge: 45 Hospital Course: ANICETO MCGRATH, is a 67 F with a PMH as outlined who presents via the ED on 10/09/2022 with a complaint of chest pain which had been going on intermittently for about 3 days prior to admission. She also had epigastric pain and dyspepsia. Symptoms were exacerbated by walking. She ate dinner on the day before admission and started having the dyspepsia when she lay down. Vitals were temp of 96F and PA of 67 as well as BP of 136/82, and he was saturating at 97% on room air. CBC showed wbc of 11.8, Hb of 13.2 and platelets of 401. Chemistry showd sodium of 138 and potassium of 4.3 as well as 1.05 . Total bilirubin is 1.4. Initial troponin was 4749. CXR showed no acute pulmonary process. D dimer not done. She hasnt had any recent long distance travel and has never had a PE or DVT. She is being admitted to be managed for nonstemi. Cardiology was consulted. She was started on heparin drip and aspirin as well as high intensity statin. She had cardiac cath on 10/09/2022 which showed single vessel coronary disease involving side branches of the obtuse marginal branch and mild disease of the left anterior descending artery and right coronary artery, with LV systolic dysfunction consistent with Takotsubo cardiomyopathy. Due to D dimer being elevated, she had a CTA of the chest which was negative for any evidence of PE. She had 2D echo which showed EF of 50% iwth normal LV siz and mild segmental systolic dysfunction and mild tricuspid valve insufficiency She was started on PO aspirin, high intensity statin and carvedilol. She remained stable and was discharged home on 10/10/2022. She is to follow up with her PCP and cardiology within 1-2 weeks. Patient seen and examined prior to discharge. She complained of some mild pain her epigastric and left upper quadrant area. Review of systems was otherwise negative. Labs and vitals reviewed. Home meds reviewed and reconciled. Physical Exam Const alert, oriented x3 and no apparent distress General Appearance: cooperative, comfortable and well kempt HEENT normocephalic, head/scalp atraumatic, hearing grossly normal bilaterally, moist oral mucous membranes and oropharynx normal Mouth: oral and palatal mucosa normal Eyes PERRL, EOMs intact bilaterally and conjunctivae normal Neck no lymphadenopathy, supple and no JVD Resp normal respiratory effort, no retractions, no use of accessory muscles and clear to auscultation bilaterally Cardio regular rate, regular rhythm, S1 normal heart sound, S2 normal heart sound and no murmurs GI normal to inspection, nondistended, normoactive bowel sounds, soft to palpation, non-tender and non-distended Extremity normal to inspection, full ROM and no clubbing, cyanosis or edema Skin no rashes or lesions noted and no wounds Neuro oriented x3, CN's II-XII intact bilaterally, moves all extremities and no focal motor deficits Sensorium / Orientation: awake and alert Motor Exam: strength 5/5 throughout Psych affect normal Weight / BMI Weight Weight: 169 lb 12.095 oz Body Mass Index (BMI) 29.1 ABG / Lab / Microbiology Data 10/10/22 04:42 10/10/22 04:42 Laboratory: Laboratory Results - last 24 hr 10/09/22 08:50: PT 13.5, INR 1.0, APTT 29.9, D-Dimer Quant (PE/DVT) 1.08 H* 10/09/22 10:10: Troponin I High Sens 5686 H* 10/10/22 04:42: WBC 9.9, RBC 4.28, Hgb 11.4 L, Hct 35.4 L, MCV 82.7, MCH 26.6 L, MCHC 32.2, RDW Std Deviation 40.6, RDW Coeff of Corrie 13.5, Plt Count 332, MPV 10.5, Immature Gran % (Auto) 0.200, Neut % (Auto) 68.5, Lymph % (Auto) 19.9, [place] % (Auto) 7.5, Eos % (Auto) 3.0, Baso % (Auto) 0.9, Absolute Neuts (auto) 6.8, Absolute Lymphs (auto) 1.98, Nucleated RBC % 0, Sodium 137, Potassium 4.3, Chloride 104, Carbon Dioxide 28.0, Anion Gap 5, BUN 13, Creatinine 1.06 H, Estim Creat Clear Calc 45.69, Est GFR (MDRD) Af Amer 67, Est GFR (MDRD) Non-Af 55 L, BUN/Creatinine Ratio 12.3, Glucose 107 H, Calcium 8.4 L, Triglycerides 116, Cholesterol 160, LDL Cholesterol 68, VLDL Cholesterol 23, HDL Cholesterol 69 Radiography Diagnostic Testing: Radiology Impression Chest CTA 10/10/22 07:24 IMPRESSION: 1. No CTA evidence of pulmonary thromboemboli, thoracic aortic aneurysm or dissection. 2. No acute chest abnormality or suspicious infiltrates. Electronically Signed: Henry Sterling MD at 8:39 EDT , D/C Instructions Discharge Diet: Low fat / Low cholesterol Discharge Activity: Return to Normal Activity Weight Bearing Status: Weight bearing as tolerated Call your doctor if you observe: Fever of 101 or Higher, Shortness of breath, Dizziness, Swelling in the ankles, Chest pain and Increased palpitations (irregular heartbeat) Meaningful Use Info Meaningful Use Diagnoses (Choose all that apply): AMI AMI/Post PCI/Angioplasty Aspirin given w/in 24hrs of arrival?: Yes ASA at discharge?: Yes Antiplatelet Therapy at Discharge:: No Reason Antiplatelet Therapy not ordered:: not indicated Statins at discharge?: Yes Wil/ARB at discharge?: Yes Beta Beryl at discharge?: Yes Done w/ Acute SD measure.: Yes Documented LVEF (%): 45 Discharge Plan Admission Admit Date/Time: 10/09/22 09:22 Primary Reason for Your Visit: Nonstemi Attending Provider: Brianna Otto Primary Care Provider: Care Physician,No Primary Consulting Providers: Vinay Khanna Instructions Patient Instructions: First Aid: Heart Attacks, Heart Attack Dc, Exercising After a Heart Attack, Heart Attack Meds Discharge Orders/Prescriptions Prescriptions: New aspirin 81 mg Tablet,Delayed Release (Dr/Ec) 81 mg PO BREAKFAST Qty: 30 2RF lisinopril 5 mg Tablet 5 mg PO DAILY Qty: 30 2RF atorvastatin 40 mg Tablet 40 mg PO QHS Qty: 30 2RF isosorbide mononitrate 30 mg Tablet Extended Release 24 Hr 30 mg PO DAILY Qty: 30 2RF carvedilol 3.125 mg Tablet 3.125 mg PO BID Qty: 60 2RF nitroglycerin 0.4 mg Tablet, Sublingual 0.4 mg sublingual Q5M PRN (Reason: Cardiac/Chest Pain) Qty: 30 1RF Continued levothyroxine 50 MCG tablet 50 mcg PO DAILY calcitriol 0.25 MCG capsule 0.25 mg PO DAILY rizatriptan 5 MG tablet 5 mg PO 4X/DAY PRN PRN (Reason: Migraine Symptoms) Qty: 30 0RF Hold Instructions: Pt hasn't needed it. fluticasone propionate 50 mcg/actuation spray,suspension 1 spray INTRANASAL Q12H PRN (Reason: congestion) Patient Comments: instill 1 spray into each nostril every morning melatonin 5 mg capsule 5 mg PO QHS PRN (Reason: sleep) calcium carbonate [Calcium 500] 500 mg calcium (1,250 mg) tablet,chewable 1,000 mg PO DAILY Discontinued lisinopril 20 mg tablet 20 mg PO DAILY Patient Comments: take 1 tablet by mouth once daily Referrals / Follow Up: Vinay Khanna MD [Med Staff - Active Staff] - Within 1 Week Care Physician,No Primary [Primary Care Provider] - Disposition Disposition (needs filled in before D/C Order can be placed): Home, Self Care Charges/Coding Visit Charges Inpatient E&M: 18513 Disch Hosp >30min
[2022-10-10 10:14] LABS: Hemoglobin A1c 5.2 % (3.8-5.6)
[2022-10-10] MEDS: Pantoprazole Sodium 20 MG Tablet PO (11:37)
--- NOTE | 2022-10-10 14:45 | CASEMGMT ---
RN CM Face to Face with patient for initial transition planning/care coordination assessment. RN CM introduced self and role at [facility]. Patient lying in bed, alert and oriented. Patient willing to participate in assessment and is able to answer all questions appropriately. Care providers, pharmacy, and demographics verified. Patient wishes to discharge home, denies need for home health at this time. Patient states she has no further needs or concerns at this time. CM to follow for discharge planning needs that may arise. PCP: Clinton Pierce in [place] Specialists: Johanny sr. manager marketing Preferred [facility]acy: [facility] [place]: [place] Prescription Benefit: yes Living Will/HPOA: yes, daughter Ghazala Ryan LNOK: daugther, significant other Living Arrangements: Patient lives alone in a condo with 2 steps and railing to enter the home. Patient is independent at home. Transportation: significant other DME/HHC: Patient denies DME or previous HHC or SNF Disposition Plan: Patient to discharge home with family support and follow-up plans in place. Amaris ALEXANDER, RN, CM
--- NOTE | 2022-10-10 15:40 | PHA.DC.MC.R ---
Pharmacy [facility] has performed discharge medication reconciliation and counseling for this patient. Medications sent to [facility], patient wants them filled in [place] because she will be staying in town for a couple of days. Patient plans to call [facility] to ask for them to transfer the prescriptions. 1. ASPIRIN 81MG PO BREAKFAST 2. ATORVASTATIN 40MG PO QHS 3. CARVEDILOL 3.125MG PO BID 4. ISOSORBIDE MONONITRATE 30MG PO DAILY 5. NITROGLYCERIN 0.4MG SL Q5M PRN CHEST PAIN The patient's discharge medication list was reviewed for discrepancies and discrepancies were resolved. The patient was counseled on the following discharge medications and changes in medications for homegoing were reviewed. The Reason for Use, instructions for use, and potential side effects were reviewed for all new medications. The patient's questions regarding all of their medications were answered. The patient was able to verbally demonstrate an understanding of their discharge medications. Patient counseled by vice president pharmacySafia. Medications at Discharge Home Medications calcitriol 0.25 mcg capsule 0.25 mg PO DAILY supplement 01/08/18 levothyroxine 50 mcg tablet 50 mcg PO DAILY thyroid 01/08/18 rizatriptan 5 mg tablet 5 mg PO 4X/DAY PRN PRN Migraine Symptoms #30 tabs 01/09/18 calcium carbonate 500 mg calcium (1,250 mg) chewable tablet (Calcium 500) 1,000 mg PO DAILY supplement 10/09/22 fluticasone propionate 50 mcg/actuation nasal spray,suspension 1 spray intranasal Q12H PRN congestion 10/09/22 melatonin 5 mg capsule 5 mg PO QHS PRN sleep 10/09/22 aspirin 81 mg tablet,delayed release 81 mg PO BREAKFAST #30 tabs 10/10/22 atorvastatin 40 mg tablet 40 mg PO QHS #30 tabs 10/10/22 carvedilol 3.125 mg tablet 3.125 mg PO BID #60 tabs 10/10/22 isosorbide mononitrate 30 mg tablet,extended release 24 hr 30 mg PO DAILY #30 tabs 10/10/22 lisinopril 5 mg tablet 5 mg PO DAILY #30 tabs 10/10/22 nitroglycerin 0.4 mg sublingual tablet 0.4 mg sublingual Q5M PRN Cardiac/Chest Pain #30 tabs 10/10/22
--- NOTE | 2022-10-10 15:48 | CHAPLAIN ---
Type of Pastoral Visit _x__ Initial Visit ___ Follow-up Visit ___ On-call Visit ___ General Patient Visit ___ Spiritual Assessment ___ Family Conference ___ Bereavement ___ Rapid Response ___ Code Blue ___ Other (describe below) Pastoral Care Referral From _x__ Patient ___ Family ___ Nurse ___ Physician ___ Furniture Refinisher ___ Bath Solution Maker ___ Other (describe below) Sacrament/Intervention _x__ Active listening ___ Anointing ___ Zoroastrianism ___ Bereavement ___ Communion _x__ Tanya exploration ___ _x__ Life review _x__ Prayer ___ Reconciliation ___ Sacrament of Sick ___ Supportive presence ___ Wedding ___ Other (describe below) Pastoral Comments patient is talkative and gives her thoughts on recent attack and how she must make some personal changes in life; pt speaks from a perspective of spiritual tanya; pt herself offers how to make her spiritual and physical life improvement; affirmation and support given; pt also welcomed prayer
== END 2022-10-10 17:15 | disposition home or self-care (01) | DRG 281 ==
LOC: ED 09:13 → PCU 09:32
PROVIDERS: Admitting Provider Student in an Organized Health Care Education/Training Program; Emergency Provider Student in an Organized Health Care Education/Training Program; Visit Provider Student in an Organized Health Care Education/Training Program
DX: I21.4 Non-ST elevation (NSTEMI) myocardial infarction (principal); I51.81 Takotsubo syndrome; E03.9 Hypothyroidism, unspecified; I10 Essential (primary) hypertension; I25.10 Atherosclerotic heart disease of native coronary artery without angina pectoris; Z79.82 Long term (current) use of aspirin; Z66 Do not resuscitate
CPT/HCPCS: 36415; 71045; 71275; 80048; 80061; 80076; 83036; 83690; 84484; 85025; 85379; 85610; 85730; 93005; 93306; 93458; 99152; 99153; 99285; J7040; Q9967; A4216; C1769; C1894; J2405

== ENCOUNTER → 2023-01-23 | Outpatient (CLI) | payer BC, SELFPAY ==
--- NOTE | 2023-01-23 07:49 | ECHOCS_ITS ---
Reason For Study: Takotsubo CMP Procedure This was a 2D Doppler, Color Flow transthoracic echocardiogram. The study was technically difficult. Contrast injection was performed. Exam performed in department. Left Ventricle Normal LV size. Left ventricular systolic function is normal. Mild segmental systolic dysfunction (see wall motion). The estimated ejection fraction is 53 %. Stage 1 diastolic dysfunction. Mid- Lateral : Hypokinetic. Lateral [place] : Hypokinetic. Septal [place] : Hypokinetic. Right Ventricle Normal RV size. Normal systolic function. Atria Normal left atrium. Normal right atrium. Mitral Valve Normal mitral valve. Tricuspid Valve Normal tricuspid valve. Mild tricuspid valve insufficiency. Pulmonary artery systolic pressure is 30 mmHg. Aortic Valve Normal aortic valve. Mild (1+) aortic valve insufficiency. Great Vessels Normal aortic root. The pulmonary artery is normal size. Normal inferior vena cava. Pericardium/Pleural No pericardial effusion. Medication 22 gauge I.V. with prn adaptor inserted into right arm. Diluted definity 4ml given slow IV push to enhance endocardial definition. MMode/2D Measurements & Calculations LVIDd: 4.2 cm IVSd: 0.99 cm Ao root diam: 3.4 cm LVIDs: 3.1 cm LVPWd: 0.86 cm LA dimension: 3.9 cm RVDd: 3.1 cm FS: 26.4 % LAV(MOD-bp): 52.6 ml LVAd ap4: 35.8 cm2 SV(MOD-sp4): 57.8 ml LAV(MOD-bp) Indexed: 29.5 ml/m2 LVLd ap4: 9.0 cm LAV(MOD-sp2): 58.9 ml EDV(MOD-sp4): 113.4 ml LAV(MOD-sp4): 46.0 ml EDV(sp4-el): 121.3 ml LVAs ap4: 22.2 cm2 LVLs ap4: 7.1 cm ESV(MOD-sp4): 55.6 ml ESV(sp4-el): 59.2 ml EF(MOD-sp4): 50.9 % EF(sp4-el): 51.2 % SV(sp4-el): 62.1 ml LA A4 area: 17.1 cm2 RA A4 area: 11.5 cm2 TAPSE: 1.6 cm Time Measurements MV dec time: 0.24 sec Doppler Measurements & Calculations MV E max delbert: 58.1 cm/sec Lat Peak E' Delbert: 10.0 cm/sec Med Peak E' Delbert: 6.9 cm/sec MV A max delbert: 73.7 cm/sec E/E' lat: 5.8 E/E' med: 8.4 MV E/A: 0.79 MV V2 max: 72.3 cm/sec MV P1/2t max delbert: 68.7 cm/sec Ao V2 max: 102.0 cm/sec MV max P.1 mmHg MV P1/2t: 75.8 msec Ao max P.2 mmHg MV V2 mean: 36.1 cm/sec MV dec slope: 265.6 cm/sec2 Ao V2 mean: 72.4 cm/sec MV mean P.65 mmHg Ao mean P.4 mmHg MV V2 VTI: 23.4 cm MVA(P1/2t): 2.9 cm2 Ao V2 VTI: 25.5 cm AV (velocity ratio): 0.77 AI max delbert: 404.0 cm/sec LV V1 max: 76.7 cm/sec PA V2 max: 69.3 cm/sec AI max P.3 mmHg LV V1 max P.4 mmHg AI dec slope: 209.0 cm/sec2 LV V1 mean P.3 mmHg AI P1/2t: 566.3 msec LV V1 mean: 52.9 cm/sec LV V1 VTI: 19.7 cm TR max delbert: 250.7 cm/sec TR max P.1 mmHg ECHO/Echo Complete W/ Contrast Interpretation Summary Left ventricular systolic function is normal. Mild segmental systolic dysfunction (see wall motion). Stage 1 diastolic dysfunction. The estimated ejection fraction is 53 %. Pulmonary artery systolic pressure is 30 mmHg. Contrast injection was performed. Compared to previous study, the left ventricu lar systolic function is the same.. Ordering Physician: Nea Byers Referring Physician: Clinton Pierce Performed By: Brodwolf, Moose, RCS
== END | disposition home or self-care (01) ==
LOC: CVS 07:46
PROVIDERS: PCP Internal Medicine; Visit Provider Physician Assistant Medical
DX: I51.81 Takotsubo syndrome (principal)
CPT/HCPCS: 93306; Q9957; A4216; C8929

== ENCOUNTER 2023-09-09 03:38 | Emergency (ER) | payer BC, SELFPAY ==
[2023-09-09 03:39] VITALS: BP 137/71; PULSE 56; RESP 18; TEMP 36.8; O2SAT 98; BMI 28.8
--- NOTE | 2023-09-09 03:57 | EKG12_ITS ---
Test Reason : CHEST PAIN Blood Pressure : / mmHG Vent. Rate : 052 BPM Atrial Rate : 052 BPM P-R Int : 212 ms QRS Dur : 094 ms QT Int : 434 ms P-R-T Axes : 038 005 042 degrees QTc Int : 403 ms Sinus bradycardia with 1st degree A-V block Otherwise normal ECG Confirmed by Devan Krishnan ([id number]), advertising editor LAMONT ALEGRIA ([id number]) on 09/11/2023 10:43:40 AM Referred By: MICHELET Confirmed By:Devan Krishnan
[2023-09-09 04:10] LABS: Absolute Lymphocyte Count 2.72 X10^3/uL (0.83-4.51); Absolute Neutrophil Count 3.8 X10^3/uL (2.0-7.7); Basophil# 0.12 X10^3/uL; Basophil% 1.5 % (0-1); Eosinophil# 0.72 X10^3/uL; Eosinophils% 8.7 % (0-5); Hematocrit 42.9 % (37-47); Hemoglobin 13.1 g/dL (12.0-15.0); Lymphocyte # 2.72 X10^3/ul (0.83-4.51); Lymphocyte % 32.9 % (19-41); Mean Corp Hgb Conc 30.5 g/dL (32-36); Mean Corpuscular Volume 85.1 fL (81-99); Mean Platelet Vol. 10.3 fl (6.2-12.0); Monocyte# 0.87 X10^3/uL; Monocyte% 10.5 % (0-10); NRBC Flagged by Analyzer 0 % (0-5); Neutrophil # 3.81 X10^3/uL (2.7-7.7); Neutrophil % 46.2 % (47-70); Platelet Count 317 K/mm3 (150-450); RBC Distribution Width CV 13.7 % (11.6-14.6); RBC Distribution Width SD 42.1 fl (35.1-43.9); Red Blood Count 5.04 M/mm3 (4.2-5.4); White Blood Count 8.3 K/mm3 (4.4-11.0)
--- NOTE | 2023-09-09 04:10 | RAD_ITS ---
INDICATION: chest pain EXAMINATION/TECHNIQUE: X-RAY - XR Chest 2 Views COMPARISON: October 09, 2022. FINDINGS: LINES/DEVICES: None. LUNGS: No consolidation, edema or effusion. No pneumothorax. MEDIASTINUM AND CARDIOVASCULAR STRUCTURES: Cardiac silhouette not enlarged. Aortic atherosclerosis. BONES AND SOFT TISSUES: Right upper quadrant surgical clips are present. Prominent colonic stool. . RAD/Chest PA and Lateral IMPRESSION: No radiographic evidence of acute cardiopulmonary disease. Prominent colonic stool. Electronically Signed: Leo Reynolds MD at 5:35 EDT ,
[2023-09-09 04:25] LABS: Anion Gap 6 (5-15); BUN 15 mg/dL (7-18); BUN/Creat Ratio 11.9 RATIO (10-20); Calcium,Total 9.5 mg/dL (8.5-10.1); Chloride 108 mmol/L (98-107); Creatinine, Serum 1.26 mg/dL (0.55-1.02); EST Glomerular Filtration Rate 45 mL/min (>60); Est Glom Filt Rate - Afr Amer 55 mL/min (>60); Estimated Creatinine Clearance 43.89 ml/min; Glucose 90 mg/dL (74-106); Magnesium 2.2 mg/dL (1.6-2.6); Potassium 3.8 mmol/L (3.5-5.1); Sodium Level 142 mmol/L (136-145); Troponin-I HS 9 pg/mL (3.0-54.0)
[2023-09-09 05:31] VITALS: BP 130/84; PULSE 50; RESP 16; TEMP 36.7; O2SAT 98
--- NOTE | 2023-09-09 05:43 | EDS_ITS ---
HPI History of Present Illness Chief Complaint: Chest Pain Informant: patient and friend Narrative Narrative: Patient is a 68-year-old female with past medical history of CAD and hypertension who had a non-STEMI roughly 1 year ago. She states she has been having intermittent bouts of chest discomfort as well as even sensation of lightheadedness/near syncope. 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 She states that she has been having intermittent bouts of chest discomfort and she was informed by her doctor that if they recur she should come to the ER for evaluation because of her past history. Patient states she was sleeping when she awoke with some midsternal chest pressure that was similar nature to her non-STEMI from roughly 1 year ago and that she had mild nausea associated with this. She denies any vomiting diaphoresis or shortness of breath. She states that symptoms lasted for approximately 10 minutes and then resolved spontaneously but with concern this could be cardiac in nature comes in for evaluation [facility] Medical History Atherosclerotic heart disease of [place] coronary artery without angina pectoris (10/10/22) Takotsubo cardiomyopathy (10/10/22) HTN (hypertension), benign NSTEMI (non-ST elevated myocardial infarction) (10/09/22) Chest pain Hypothyroidism Home Medications ?Medication ?Instructions ?Recorded ?Last Taken ?Type calcitriol 0.25 mcg capsule 0.25 mg PO DAILY supplement 01/08/18 01/07/18 History calcium carbonate (Calcium 500) 1,000 mg PO DAILY supplement 10/09/22 Unknown History melatonin 5 mg capsule 5 mg PO QHS PRN sleep 10/09/22 Unknown History aspirin 81 mg tablet,delayed 81 mg PO BREAKFAST #30 tabs 10/10/22 Unknown Rx release nitroglycerin 0.4 mg sublingual 0.4 mg sublingual Q5M PRN 10/10/22 Unknown Rx tablet Cardiac/Chest Pain #30 tabs magnesium oxide 500 mg PO DAILY 10/26/22 Unknown History mecobalamin (vitamin B12) 5,000 5,000 mcg PO DAILY 10/26/22 Unknown History mcg chewable tablet atorvastatin 40 mg tablet 40 mg PO QHS #90 tabs 11/09/22 Unknown Rx lisinopril 5 mg tablet 5 mg PO DAILY #90 tabs 11/09/22 Unknown Rx isosorbide mononitrate 30 mg 30 mg PO DAILY #90 tabs 11/10/22 Unknown Rx tablet,extended release 24 hr levothyroxine 50 mcg tablet 50 mcg PO DAILY thyroid 02/03/23 Unknown History topiramate 25 mg tablet (Topamax) 25 mg PO DAILY 02/03/23 Unknown History metoprolol succinate 25 mg 12.5 mg (1/2 x 25 mg) PO QHS #90 03/01/23 Unknown Rx tablet,extended release 24 hr tabs Allergy/AdvReac Type Severity Reaction Status Date / Time No Known Allergies Allergy Verified 09/09/23 03:45 Social History Smoking Status: Never smoker ROS ROS ED Constitutional Constitutional ED: Denies chills or fever(s) Eyes Eyes: Denies change in vision ENT ENT ED: Denies sore throat Cardiovascular Cardiovascular: Reports chest pain; Denies palpitations or racing heartbeat Respiratory/Chest Respiratory/Chest: Denies cough or dyspnea Gastrointestinal Gastrointestinal: Reports nausea; Denies abdominal pain, diarrhea or vomiting Genitourinary Genitourinary ED: Denies dysuria Musculoskeletal Musculoskeletal: Denies back pain, myalgias or neck pain Integumentary Denies rash Neurologic Neurologic: Denies headache(s) Hematologic/Lymphatic Hematologic/Lymphatic: Denies easy bleeding or easy bruising EXAM Physical Exam Const Vital Signs: 09/09/23 03:39 09/09/23 03:54 09/09/23 05:31 Temperature 98.3 F 98.1 F Temperature Source Temporal Temporal Pulse Rate 56 L 50 L Respiratory Rate 18 16 Respiratory Effort Normal Non-Labored Blood Pressure 137/71 H 130/84 H Blood Pressure Mean 93 99 Pulse Ox 98 98 Oxygen Delivery Method Room Air Room Air 09/09/23 06:00 Temperature 98.4 F Temperature Source Temporal Pulse Rate 46 L Respiratory Rate 11 L Respiratory Effort Blood Pressure 147/73 H Blood Pressure Mean 97 Pulse Ox 97 Oxygen Delivery Method Room Air Positive well nourished and well developed General Appearance ED: well developed; Negative for pallor HEENT HEENT Narrative: Normocephalic atraumatic Eyes PERRL and EOMs intact bilaterally General Eye ED: Negative for pale conjunctiva or scleral icterus Neck supple and no JVD Chest Wall palpation of chest normal Resp normal respiratory effort and clear to auscultation bilaterally Cardio regular rate and regular rhythm Rate: other Other Details: Heart is regular rate and rhythm without murmurs rubs or gallops No carotid bruits noted Radial and carotid pulses are equal and symmetric GI normal to inspection, nondistended, normoactive bowel sounds, non-tender, non-distended and no masses GI Narrative: No voluntary guarding or rigidity or pulsatile mass Auscultation: normoactive bowel sounds Palpation: soft Extremity normal to inspection Extremity Narrative: No asymmetric edema no pitting edema negative Homans' sign bilaterally Neuro oriented x3, CN's II-XII intact bilaterally and no sensory deficits noted Sensorium / Orientation: alert Motor Exam: strength 5/5 throughout Psych mental status grossly normal Skin no rashes or lesions noted and no wounds General Skin Exam: Negative for jaundice or pallor MDM MDM MDM Narrative Medical decision making narrative: Patient arrived to the ER with stable vitals and reported spontaneous resolution of her cardiac symptoms. Differential diagnosis is for acute coronary syndrome versus Prinzmetal's angina versus cardiac dysrhythmia versus pneumonia. The patient did states she had a heart cath roughly 9 months ago which revealed no signs of significant CAD. She also denies any recent surgery travel or history of DVT/PE so I felt no need for a D-dimer or CTA. Blood work revealed no clinically significant findings with a initial normal troponin at 9. Delta troponin did not change going against acute coronary syndrome and the patient was on the instrument technician helper and there was no cardiac dysrhythmia. Also chest x- ray revealed no lung pathology as a cause of her symptoms as there was no pneumonia or pneumothorax or widening of the mediastinum. On reevaluation she is resting comfortably her vitals are stable and her pain remains resolved and therefore there is no need for further workup and she is otherwise safe for discharge History & Record Review Discussion w/independent historian: Patient and Friend Lab Data Attestation: I reviewed the patient's lab results. Labs: Laboratory Results - last 24 hr 09/09/23 09/09/23 03:44 05:35 WBC 8.3 RBC 5.04 Hgb 13.1 Hct 42.9 MCV 85.1 MCH 26.0 L MCHC 30.5 L RDW Std Deviation 42.1 RDW Coeff of Corrie 13.7 Plt Count 317 MPV 10.3 Immature Gran % (Auto) 0.200 Neut % (Auto) 46.2 L Lymph % (Auto) 32.9 [place] % (Auto) 10.5 H Eos % (Auto) 8.7 H Baso % (Auto) 1.5 H Absolute Neuts (auto) 3.8 Absolute Lymphs (auto) 2.72 Nucleated RBC % 0 Sodium 142 Potassium 3.8 Chloride 108 H Carbon Dioxide 28.0 Anion Gap 6 BUN 15 Creatinine 1.26 H Estim Creat Clear Calc 43.89 Est GFR (MDRD) Af Amer 55 L Est GFR (MDRD) Non-Af 45 L BUN/Creatinine Ratio 11.9 Glucose 90 Calcium 9.5 Magnesium 2.2 Troponin I High Sens 9 9 Radiography Diagnostic Testing: Clinical Impression(s) from Imaging Studies Chest X-Ray 09/09/23 04:10 IMPRESSION: No radiographic evidence of acute cardiopulmonary disease. Prominent colonic stool. Electronically Signed: Leo Reynolds MD at 5:35 EDT , Chest x-ray as interpreted by the emergency medicine physician reveals no acute infiltrate pneumothorax pleural effusion or widening mediastinum Discharge Plan Triage Chief Complaint: Chest Pain ED Provider: Francesco Esposito Dx/Rx/DC Orders Clinical Impression: Nonspecific chest pain, HTN (hypertension), benign, Takotsubo cardiomyopathy Instructions: ED Chest Pain, Uncertain Cause Prescriptions: No Action mecobalamin (vitamin B12) 5,000 mcg tablet,chewable 5,000 mcg PO DAILY Rx Instructions: 3 times a week magnesium oxide 500 mg tablet 500 mg PO DAILY topiramate [Topamax] 25 mg tablet 25 mg PO DAILY calcitriol 0.25 MCG capsule 0.25 mg PO DAILY levothyroxine 50 mcg tablet 50 mcg PO DAILY Patient Comments: three times a week patient takes 100mcg. melatonin 5 mg capsule 5 mg PO QHS PRN (Reason: sleep) calcium carbonate [Calcium 500] 500 mg calcium (1,250 mg) tablet,chewable 1,000 mg PO DAILY aspirin 81 mg Tablet,Delayed Release (Dr/Ec) 81 mg PO BREAKFAST Qty: 30 2RF nitroglycerin 0.4 mg Tablet, Sublingual 0.4 mg sublingual Q5M PRN (Reason: Cardiac/Chest Pain) Qty: 30 1RF lisinopril 5 mg tablet 5 mg PO DAILY Qty: 90 3RF atorvastatin 40 mg tablet 40 mg PO QHS Qty: 90 3RF isosorbide mononitrate 30 mg tablet extended release 24 hr 30 mg PO DAILY Qty: 90 3RF metoprolol succinate 25 mg tablet extended release 24 hr 12.5 mg PO QHS Qty: 90 3RF Primary Care Provider: Clinton Pierce Referrals: Clinton Pierce MD [Primary Care Provider] - Activity Restrictions/Additional Instructions: Your workup revealed no signs of heart damage or abnormal cardiac rhythm. Continue all of your home medications as directed by your family doctor and follow-up with your software project manager for repeat evaluation. Return to the ER should you have any further concerns Print Language: Kazakh Disposition Disposition: Home, Self Care
[2023-09-09 06:00] VITALS: BP 147/73; PULSE 46; RESP 11; TEMP 36.9; O2SAT 97
[2023-09-09 06:07] LABS: Troponin-I HS 9 pg/mL (3.0-54.0)
[2023-09-09 06:21] VITALS: BP 118/75; PULSE 61; RESP 19; TEMP 36.1; O2SAT 99
== END 2023-09-09 06:22 | disposition home or self-care (01) ==
PROVIDERS: Emergency Provider Emergency Medicine; PCP Internal Medicine; Visit Provider Emergency Medicine
DX: R07.9 Chest pain, unspecified (principal); I25.2 Old myocardial infarction; I10 Essential (primary) hypertension; I25.10 Atherosclerotic heart disease of native coronary artery without angina pectoris; I51.81 Takotsubo syndrome; Z79.82 Long term (current) use of aspirin; Z79.899 Other long term (current) drug therapy; E03.9 Hypothyroidism, unspecified
CPT/HCPCS: 71046; 80048; 83735; 84484; 85025; 93005; 99283; A4216

== ENCOUNTER → 2023-10-05 | Outpatient (CLI) | payer BC, SELFPAY ==
--- NOTE | 2023-10-05 12:39 | STRESSREP_ITS ---
Stress Test Report Exercise myocardial perfusion stress test. 68-year-old lady with a history of chest pain Stress protocol: Resting EKG demonstrates sinus bradycardia with a rate of 52 bpm resting blood pressure is 130/80 mmHg. The patient exercised according to the regular Mumtaz protocol for a total duration of 8 minutes attaining a maximum heart rate of 153 bpm which was 99% of maximum predicted heart rate; the maximum workload was 10.1 metabolic equivalents. At rest there were no ST or T wave changes noted to suggest ischemia and at peak exercise upsloping ST changes only were noted which did not meet the criteria for ischemia. No clinical angina was noted the test was terminated due to the target heart rate being achieved/fatigue. The peak bl ood pressure was 132/78 mmHg. Rate-pressure product was 16,500. Myocardial perfusion protocol. 11.6 mCi of technetium 99m sestamibi was injected at rest. The patient exercised according to regular Mumtaz protocol for total duration of 8 minutes and at peak exercise 34.1 mCi of technetium 99m sestamibi was injected stress images were obtained stress and rest images were reconstructed in comparing the short axis vertical long and horizontal long axis. Gated images were also obtained. Perfusion SPECT analysis: Review of the stress images demonstrate normal uptake of tracer noted in all areas of the myocardium. The resting images similarly demonstrate normal uptake of tracer noted in all areas of the myocardium. No areas of reversibility are noted to suggest ischemia no previous infarct was noted. Gated SPECT analysis: The gated ejection fraction is 73%. Conclusion: Normal exercise myocardial perfusion stress test at a high workload Preserved ejection fraction.
== END | disposition home or self-care (01) ==
PROVIDERS: PCP Internal Medicine; Referring Provider Physician Assistant Medical; Visit Provider Physician Assistant Medical
DX: R07.9 Chest pain, unspecified (principal)
CPT/HCPCS: 78452; 93017; A9500; A4216